=== PATIENT | female | born 1945 | race Caucasian/White ===

== ENCOUNTER 2016-08-17 00:11 | Inpatient (IN) ==
[2016-08-17] MEDS ORDERED: MOM Conc 10 ML UD.LIQ PO PRN (08:30)
[2016-08-17] MEDS ORDERED: Naloxone 0.4 MG/ML INJ IVP PRN (08:30)
[2016-08-17] MEDS ORDERED: Ibuprofen 600 MG TABLET PO PRN (08:30)
--- NOTE | 2016-08-17 08:41 | Internal Med History&Physical ---
<Mariah Palmer - Last Filed: 08/17/16 15:40> Date of Encounter: 08/17/16 Assessment and Plan (1) Intertrochanteric fracture of left hip Current visit: No Status: Acute Pt with L intertrochanteric fx, femeral head is not displaced, SI joints intact. Pt will have surgery tomorrow. Goal is to control pain until surgery. Pt has no obvious bruising or abrasions, but LLE is in position of comfort with obvious shortening and external rotation. LLE with +1 pedal pulse, foot pink and warm, adequate movement of toes and ankle. Morphine 1mg IV q4h prn severe pain Ibuprofen 400mg q6h po prn moderate pain DVT prophylaxis Pt will be NPO after midnight Qualifiers: Encounter type: initial encounter Fracture type: closed Qualified Code(s) : S72.142A - Displaced intertrochanteric fracture of left femur, initial encounter for closed fracture (2) Hypertension Current visit: Yes Status: Chronic Pt states that she has HTN but only takes her medication when she needs it. Will monitor throughout admission. Qualifiers: Hypertension type: essential hypertension Qualified Code(s): I10 - Essential (primary) hypertension (3) Vitamin D deficiency Current visit: Yes Status: Chronic Pt reports history of Vit D deficiency with OTC supplementation. Vit D 25mg/dL. Internal Medicine - H&P: HPI Chief complaint: L hip fracture Admitted From: Home Plans for Post Hospital Care: Transfer Inp Rehab Fac History of present illness: Ms. Ross is a 71 year old female with a history of previous fracture and ORIF to L tib fib 2 years ago, Osteoporosis, and osteopenia, who presents to [facility] for fall at 2100 last pm. Pt states that she got up and her knee twisted, causing her to fall to the floor. Pt with L intertrochanteric hip fracture and swelling to L knee, without fracture. VS stable. Temp 98.4, pulse 97, resps 18, 143/80, 92% on room air, sats increase to 97% with 2 liters 02/ nc. Past Med Surg Social Fam HX - Past Medical History Medical history: GERD, hypertension, osteoporosis (Rheumatic fever as a child), other (Heart murmur, vitamin D deficiency) Psychiatric history: no psych history - Past Surgical History Surgical History: , orthopedic, other (L tib fib ORIF) - Social History Smoking Status: Never smoker Smokeless Tobacco Status: No Alcohol use: none Drug use: none - Family History Father Living Status: Age at : 59 Cause of : [place] or blood clot Hx Family Cardiac Disorders: Yes Hx Family Respiratory Disorders: No Hx Family Cancer: Yes Hx Family GI Disorders: No Hx Family Genitourinary Disorders: No Hx Family Endocrine Disorder: No Hx Family Musculoskeletal Disorders: No Hx Family Neuromuscular Disorders: No Hx Family Neurologic Disorders: No Hx Family HEENT Disorders: No Hx Family Autoimmune Disorders: No Hx Family Reproductive Disorders: No Hx Family Psychosocial Disorders: No Hx Family Medical Disorders: No Internal Medicine - H&P: Meds Alendronate Sodium [Fosamax] 70 mg PO BRYSON 08/17/16 [History] Cholecalciferol (Vitamin D3) [Vitamin D] 50,000 unit PO BRYSON 08/17/16 [History] HYDROcodone/Acet 5/325 mg [[place] 5-325 mg] 1 tab PO Q8H PRN 08/17/16 [History] Ibuprofen [Ibuprofen] 800 mg PO TID PRN 08/17/16 [History] Lisinopril [Zestril] 10 mg PO DAILY 08/17/16 [History] Allergies codeine Adverse Reaction (Verified 08/17/16 11:28) Vomiting All Systems PM: A 10-system review of systems was performed and is negative for pertinent findings except as documented above in the HPI. - Constitutional Constitutional: falls, no chills, no fever(s), no weakness - Cardiovascular Cardiovascular ROS IM: no chest pain, no dyspnea, no lightheadedness - Respiratory Respiratory: no cough, no dyspnea - Gastrointestinal Gastrointestinal: no diarrhea, no nausea, no vomiting - Musculoskeletal Musculoskeletal ROS IM: deformity, joint swelling, limited range of motion, no numbness, no tingling Additional comments: Pt reports swelling to L knee and "I can't move my leg really well." - Neurological Neurological ROS: no confusion, no numbness, no paresthesias, no tingling - Constitutional Vitals: Temp Pulse Resp BP Pulse Ox 98.5 F 107 16 129/74 96 08/17/16 06:29 08/17/16 06:29 08/17/16 06:29 08/17/16 06:29 08/17/16 06:29 General appearance: Present: A&O X 3, pleasant, no acute distress, answers questions appropriately - Head Head exam: Present: atraumatic, normal inspection - Eye Eye exam: Present: normal appearance, PERRL, conjuntiva pink - ENT ENT exam: Present: mucous membranes dry, normal oropharynx - Neck Neck exam general surgery: Absent: lymphadenopathy, tenderness - Respiratory Respiratory exam: Present: CTAB. Absent: chest wall tenderness, rhonchi, wheezes - Cardiovascular Cardiovascular exam: Present: RRR, +S1, +S2 - GI/Abdominal GI/Abdominal exam: Present: hyperactive bowel sounds, soft. Absent: distended, tenderness - Extremities Exam Extremities exam: Present: joint swelling, tenderness, warm, radial pulses palpable and symetrical. Absent: cyanotic, pedal edema Additional comments: Swelling to L knee, no bruising or abrasions. Palpable deformity to L hip. No abrasions or bruising noted. Pt can move toes. No palpable pedal or post tibial pulse to R foot,L foot +1 pedal. David feet pink and warm. - Expanded Upper Extremities Exam Vascular exam: Present: pedal pulse right, pedal pulse left - Neurological Exam Neurological exam: Present: alert, oriented X3. Absent: facial droop, speech deficit - Skin Skin exam: Present: dry, intact, normal color, warm. Absent: abrasion <Oswald Young - Last Filed: 08/17/16 18:36> Date of Encounter: 08/17/16 Time of Encounter: 15:00 Internal Medicine - H&P: HPI History of present illness: Ms. Ross is a 71 year old female All Systems PM: A 10-system review of systems was performed and is negative for pertinent findings except as documented above in the HPI. - Constitutional Vitals: Temp Pulse Resp BP Pulse Ox 99.1 F 91 16 114/68 95 08/17/16 14:54 08/17/16 17:55 08/17/16 14:54 08/17/16 14:54 08/17/16 17:55 Internal Med - H&P Results - Labs Labs: Cardiac Enzymes 08/17/16 08/17/16 Range/Units 09:04 14:59 Troponin I 0.05 H* 0.03 (0-0.03) ng/mL - Attending Attestation I examined this patient and my medical decision-making was reviewed with the Advanced Practice Provider. I agree with the documented findings, disposition and treatment plan as described except to the extent set forth below. patient has suffered a mechanical fall at home and started having severe sharp left sided hip pain and left-sided knee pain worsened by movement. She was unable to stand up. The pain is currently improved with IV pain medication. Plan: Low risk for surgery, she is medically optimized for operative repair of the left hip fracture. She is at high risk for morbidity and complications due to treatment with IV controlled substances.
[2016-08-17] MEDS: *HR* Morphine 2 MG/ML SYRINGE IVP PRN ×3 (09:13→22:11)
[2016-08-17 09:17] LABS: INR 1.2; Prothrombin Time 13.1 Seconds (9.4-12.1)
[2016-08-17] MEDS: Ondansetron 4 MG/2 ML VIAL IVP PRN ×2 (09:25→17:45)
[2016-08-17] MEDS: *HR* Heparin 5,000 UNIT/ML VIAL SQ SCH ×2 (11:02→18:44)
[2016-08-17] MEDS: Cholecalciferol (D-3) 1,000 UNIT TABLET PO SCH (11:03)
[2016-08-17 11:14] LABS: Hemoglobin A1C 5.4 %
--- NOTE | 2016-08-17 18:26 | Orthopedic Consult Note ---
Date of Encounter: 08/17/16 Time of Encounter: 06:00 History of Present Illness HPI: Ms. Ross is a 71 year old female Patient status post fall when her knee gave out. Complaints of pain in her left hip. Inability to actively. Denies any head trauma. Patient alert and oriented 3 Left lower extremity neurovascularly intact decreased range of motion secondary to pain X-ray left hip shows basicervical hip fracture x-rays of knee and wrist negative for fracture. Patient for left hip open reduction intramedullary nail fixation tomorrow. Risks benefits as well as recovery were discussed. Past Med Surg Social Fam HX - Past Medical History Medical history: GERD, hypertension, osteoporosis (Rheumatic fever as a child), other (Heart murmur, vitamin D deficiency) Psychiatric history: no psych history - Past Surgical History Surgical History: , orthopedic, other (L tib fib ORIF) - Social History Smoking Status: Never smoker Smokeless Tobacco Status: No Alcohol use: none Drug use: none - Family History Father Living Status: Age at : 59 Cause of : [place] or blood clot Hx Family Cardiac Disorders: Yes Hx Family Respiratory Disorders: No Hx Family Cancer: Yes Hx Family GI Disorders: No Hx Family Genitourinary Disorders: No Hx Family Endocrine Disorder: No Hx Family Musculoskeletal Disorders: No Hx Family Neuromuscular Disorders: No Hx Family Neurologic Disorders: No Hx Family HEENT Disorders: No Hx Family Autoimmune Disorders: No Hx Family Reproductive Disorders: No Hx Family Psychosocial Disorders: No Hx Family Medical Disorders: No Medications and Allergies Alendronate Sodium [Fosamax] 70 mg PO BRYSON 08/17/16 [History] Cholecalciferol (Vitamin D3) [Vitamin D] 50,000 unit PO BRYSON 08/17/16 [History] HYDROcodone/Acet 5/325 mg [[place] 5-325 mg] 1 tab PO Q8H PRN 08/17/16 [History] Ibuprofen [Ibuprofen] 800 mg PO TID PRN 08/17/16 [History] Lisinopril [Zestril] 10 mg PO DAILY 08/17/16 [History] Allergies codeine Adverse Reaction (Verified 08/17/16 11:28) Vomiting All Systems Reviewed: A 10-system review of systems was performed and is negative for pertinent findings except as documented above in the HPI. Physical Exam - Constitutional Vitals: Temp Pulse Resp BP Pulse Ox 99.1 F 91 16 114/68 95 08/17/16 14:54 08/17/16 17:55 08/17/16 14:54 08/17/16 14:54 08/17/16 17:55 Results - Labs Labs: Abnormal lab results PT 13.1 Seconds (9.4-12.1) H 08/17/16 09:04 All other labs normal. Consult Discharge Plan - Plan Referrals: Kecia Elkins, PUMP TESTER [Primary Care Provider] -
[2016-08-17] MEDS: Famotidine 20 MG TABLET PO SCH (19:33)
--- NOTE | 2016-08-17 20:51 | Anesthesia Evaluation PreOp ---
Date of Encounter: 08/17/16 Time of Encounter: 20:49 - Past History Planned Operation: IM nailing L hip Cardiac History: HTN, Other (Rheumatic fever; heart murmur since childhood) Pulmonary History: Other (cold with sore throat one week ago) SEARCH MARKETING SPECIALIST History: Denies Any Significant HX Other Medical History: Other (osteoporosis; previous fracture to L tib-fib 2 years ago; vit D deficiency) Anesthesia History: No Prior Anesthetic Complications (except spinal didn't work for her C-S, nausea just after her C-S) Alcohol Use: none Drug use: none Medications and Allergies Alendronate Sodium [Fosamax] 70 mg PO BRYSON 08/17/16 [History] Cholecalciferol (Vitamin D3) [Vitamin D] 50,000 unit PO BRYSON 08/17/16 [History] HYDROcodone/Acet 5/325 mg [[place] 5-325 mg] 1 tab PO Q8H PRN 08/17/16 [History] Ibuprofen [Ibuprofen] 800 mg PO TID PRN 08/17/16 [History] Lisinopril [Zestril] 10 mg PO DAILY 08/17/16 [History] Allergies codeine Adverse Reaction (Verified 08/17/16 11:28) Vomiting - Meds/Allergy Pre-op Review Medications Reviewed: Yes Allergies Reviewed: Yes Beta Blockers on Current Med List: No Anesthesia Results - Labs Laboratory Tests 08/16/16 08/16/16 08/17/16 22:05 22:05 09:04 WBC 7.6 Hgb 13.9 Hct 42.6 Plt Count 302 PT 13.1 H INR 1.2 Sodium 142 Potassium 3.9 Chloride 108 Carbon Dioxide 23 BUN 10 Creatinine 0.74 Est GFR ( Amer) > 60 Est GFR (Non-Af Amer) > 60 BUN/Creatinine Ratio 14 Glucose 135 H Est Mean Plasma Glucose Hemoglobin A1c Calculated Osmolality 295 Calcium 9.4 08/17/16 09:04 WBC Hgb Hct Plt Count PT INR Sodium Potassium Chloride Carbon Dioxide BUN Creatinine Est GFR ( Amer) Est GFR (Non-Af Amer) BUN/Creatinine Ratio Glucose Est Mean Plasma Glucose 108 Hemoglobin A1c 5.4 Calculated Osmolality Calcium Anesthesia Exam Last Vital Signs Temp 98.3 F 08/17/16 20:02 Pulse 89 08/17/16 20:02 Resp 16 08/17/16 20:02 BP 110/71 08/17/16 20:02 Pulse Ox 92 L 08/17/16 20:02 Weight: 57 kg - HEENT Pupil (Motor): Pupils equal, EOMI Mallampati: II Teeth: Missing, Poor dentition, Prosthesis Denture Type: Upper: Partial Oral Opening: Greater than 3 - SEARCH MARKETING SPECIALIST LOC: Oriented - Cardiac Rhythm: Regular Murmur: Systolic (low grade LILIAN) - Pulmonary Breath Sounds: bilateral Clear Respiratory Effort: Symmetrical Anesthesia Assess/Plan ASA Score: 3 Modified Sonya Scale for Level of Consciousness: Cooperative, oriented, and tranquil Anesthetic Plan: General Monitoring Plan: Standard Monitors Recovery Plan: PACU
[2016-08-18] MEDS: *HR* Morphine 2 MG/ML SYRINGE IVP PRN ×2 (03:21→09:10)
[2016-08-18] MEDS: Ondansetron 4 MG/2 ML VIAL IVP PRN ×2 (03:25→12:16)
[2016-08-18] MEDS: *HR* Heparin 5,000 UNIT/ML VIAL SQ SCH (04:00)
[2016-08-18 04:24] LABS: BUN/Creatinine Ratio 18 (6-26); Blood Urea Nitrogen 12 mg/dL (7-20); Calcium 8.7 mg/dL (8.6-10.8); Carbon Dioxide 22 mEq/L (19-29); Chloride 107 mEq/L (98-109); Glucose 111 mg/dL (70-99); Osmolality,Calculated 290 (280-300); Potassium 3.7 mEq/L (3.5-4.5); Sodium 140 mEq/L (136-145); eGFR For African Americans > 60 (> 60); eGFR For Non-African Americans > 60 (> 60)
[2016-08-18 04:25] LABS: Basophils % 0.3 %; Eosinophils % 0.3 %; Hematocrit 40.3 % (35.3-44.9); Hemoglobin 12.9 g/dL (11.5-15.4); Immature Granulocytes % 0.3 % (0-4); Lymphocytes # 1.8 K/mcL (0.6-4.6); Lymphocytes % 21.1 %; Mean Corpuscular Hemoglobin 26.2 pg (28.0-33.3); Mean Corpuscular Volume 81.9 fL (83.0-100.0); Mean Platelet Volume 9.6 fL (9.4-12.4); Monocytes # 0.6 K/mcL (0.0-1.3); Monocytes % 6.3 %; Neutrophils # 6.3 K/mcL (1.6-8.9); Platelet Count 248 K/mcL (140-400); Red Blood Count 4.92 M/mcL (3.82-4.97); Red Cell Distribution Width 14.2 % (11.5-14.5); Segmented Neutrophils % 71.7 %
--- NOTE | 2016-08-18 06:45 | Orthopedics Progress Note ---
Date of Encounter: 08/18/16 Time of Encounter: 06:45 Subjective Interval history: Patient seen this morning resting comfortably for surgery today questions answered Objective Vital signs: Vital Signs Temp Pulse Resp BP Pulse Ox 08/18/16 05:08 98.7 F 78 16 121/73 92 L 08/18/16 00:39 99.0 F 91 15 123/73 94 L 08/17/16 20:02 98.3 F 89 16 110/71 92 L 08/17/16 17:55 91 95 08/17/16 14:54 99.1 F 94 16 114/68 93 L 08/17/16 11:23 98.5 F 92 16 125/68 98 Intake and Output 08/17/16 08/17/16 08/18/16 15:59 23:59 07:59 Intake Total 360 / 360 0 / 0 Output Total 600 / 600 1125 / 1125 Balance -600 / -600 -765 / -765 0 / 0 Intake: Oral 360 / 360 0 / 0 Output: Urine 600 / 600 1125 / 1125 - Labs CBC & BMP: 08/18/16 03:58 08/18/16 03:58 Labs: Abnormal lab results MCV 81.9 fL (83.0-100.0) L 08/18/16 03:58 MCH 26.2 pg (28.0-33.3) L 08/18/16 03:58 PT 13.1 Seconds (9.4-12.1) H 08/17/16 09:04 Glucose 111 mg/dL (70-99) H 08/18/16 03:58 Troponin I 0.04 ng/mL (0-0.03) H* 08/17/16 20:48 - VTE Documentation of Mechanical Device: Intermittent pneumatic compression device Consult Discharge Plan - Plan Referrals: Kecia Elkins, IT SUPPORT SPECIALIST [Primary Care Provider] -
[2016-08-18] MEDS: Famotidine 20 MG TABLET PO SCH ×2 (09:09→21:35)
[2016-08-18] MEDS: Cholecalciferol (D-3) 1,000 UNIT TABLET PO SCH (09:09)
--- NOTE | 2016-08-18 10:01 | Cardiology Consult Note ---
Date of Encounter: 08/18/16 Time of Encounter: 09:54 Assessment and Plan (1) Pre-operative cardiovascular examination Current Visit: Yes Status: Acute EKG shows no acute ST changes. Pt denies cardiac symptoms. No previous cardiac history. Mild troponin elevation in the setting of fall with fracture. Demand ischemia. TTE ordered by primary group. We will follow with you. If no abnormalities on TTE she can proceed with surgery with acceptable risk. (2) Elevated troponin Current Visit: Yes Status: Acute Troponin 0.05, 0.03, 0.04. Demand ischemia in the setting of fall and hip fracture. Not diagnostic of ACS. Discussion w patient/family: The assessment and plan as outlined above was discussed with the patient and/or family members who expressed understanding and agreement. All questions were answered. Thank you for involving us in the care of your patient. Please call with any questions. History of Present Illness Consult date: 08/18/16 Requesting physician: Sid Palencia Consult reason: Pre-operative cardiovascular assessment Chief complaint: Mechanical fall History of present illness: Ms. Ross is a 71 year old female who presented after a mechanical fall at home. She was found to have a left intertrochanteric hip fracture. Cardiology consulted for mild troponin elevation and pre-operative risk assessment. Past medical history includes hypertension, rhuematic fever, and heart murmur. She denies chest pain or SOB at rest or with activity. She is able to do her own house cleaning and walk without cardiac symptoms. She is unable to climb a full flight of stairs d/t knee pain. Activity limited overall d/t chronic knee pain. Denies history of CAD. Past Med Surg Social Fam HX - Past Medical History Medical history: GERD, hypertension, osteoporosis (Rheumatic fever as a child), other (Heart murmur, vitamin D deficiency) Psychiatric history: no psych history - Past Surgical History Surgical History: , orthopedic, other (L tib fib ORIF) - Social History Smoking Status: Never smoker Smokeless Tobacco Status: No Alcohol use: none Drug use: none - Family History Father Living Status: Age at : 59 Cause of : [place] or blood clot Hx Family Cardiac Disorders: Yes Hx Family Respiratory Disorders: No Hx Family Cancer: Yes Hx Family GI Disorders: No Hx Family Genitourinary Disorders: No Hx Family Endocrine Disorder: No Hx Family Musculoskeletal Disorders: No Hx Family Neuromuscular Disorders: No Hx Family Neurologic Disorders: No Hx Family HEENT Disorders: No Hx Family Autoimmune Disorders: No Hx Family Reproductive Disorders: No Hx Family Psychosocial Disorders: No Hx Family Medical Disorders: No Medications and Allergies Alendronate Sodium [Fosamax] 70 mg PO BRYSON 08/17/16 [History] Cholecalciferol (Vitamin D3) [Vitamin D] 50,000 unit PO BRYSON 08/17/16 [History] HYDROcodone/Acet 5/325 mg [[place] 5-325 mg] 1 tab PO Q8H PRN 08/17/16 [History] Ibuprofen [Ibuprofen] 800 mg PO TID PRN 08/17/16 [History] Lisinopril [Zestril] 10 mg PO DAILY 08/17/16 [History] Allergies codeine Adverse Reaction (Verified 08/17/16 11:28) Vomiting All Systems Review: A 10-system review of systems was performed and is negative for pertinent findings except as documented above in the HPI. Physical Examination Vital Signs, Last 4 Hours Temp Pulse Resp BP Pulse Ox 08/18/16 07:27 99.0 F 91 18 123/69 92 L General: Conversant, No Apparent Distress HEENT: Atraumatic, Normocephaly, Mucus Membranes Moist Neck: No JVD, Normal carotid pulses Cardiac: Reg Rate and Rhythm, Normal S1 and S2, No Murmur Lungs: Normal Breath Sounds, No Wheeze, Rales, Rhonchi Neuro: Alert and responsive, No focal deficits noted Abdomen: Soft, Non-Tender Skin: No rashes noted on visualized skin Musculoskeletal: No Chest Wall Tenderness Extremities: No Clubbing, No Cyanosis, No Edema, Normal Pulses, Other (left leg externally rotated.) Results 08/18/16 03:58 08/18/16 03:58 Lab Results 08/17/16 08/17/16 08/17/16 09:04 14:59 20:48 WBC Hgb Hct Plt Count Sodium Potassium Chloride Carbon Dioxide BUN Creatinine Glucose Calcium Troponin I 0.05 H* 0.03 0.04 H* 08/18/16 08/18/16 03:58 03:58 WBC 8.7 Hgb 12.9 Hct 40.3 Plt Count 248 Sodium 140 Potassium 3.7 Chloride 107 Carbon Dioxide 22 BUN 12 Creatinine 0.65 Glucose 111 H Calcium 8.7 Troponin I - Imaging and Cardiology Echo: pending - EKG Interpretation EKG results cardiology: personally reviewed (SR with PAC. No ST changes. HR 96 bpm.) Consult Discharge Plan - Plan Referrals: Kecia Elkins, BONITA [Primary Care Provider] -
[2016-08-18] MEDS ORDERED: *HR* Heparin 5,000 UNIT/ML VIAL SQ SCH (10:45)
--- NOTE | 2016-08-18 13:46 | ECHO - Doppler Report ---
Echocardiogram Name: Maryam Ross Date of Study: 08/18/2016 Date: 1945 Ht: 64.0 in Medical Record#: [id number] Age: 71 Wt: 126.0 lb Gender: Female BSA: 1.61 Order #: [id number] Location: [facility] Room #: [facility] Reading Physician: Angel Mccoy DO, LORIN RUBIO FASNC Instrument Lens Generator: Mayi Amin RVT Ordering Physician: Mariah Palmer CNP Primary Physician: Kecia Elkins CNP Indications: Elevated troponin Impressions: Atrial fibrillation with RVR. LVEF >70%. LV appears small and underfilled. Consider IV fluids if clinically indicated. Normal LV chamber size, wall thickness and function. Indeterminate diastolic function. Grossly normal right ventricular structure and function. Mild pulmonary hypertension. No significant valvular dysfunction. Left Ventricular Wall Motion: Rest Echo Findings The apex, apical inferior, mid inferior, basal inferior, apical anterior, mid anterior, basal anterior, apical septal, mid inferior septal, basal inferior septal, apical lateral, mid anterior lateral, basal anterior lateral, mid anterior septal, mid inferior lateral, basal anterior septal and basal inferior lateral lane were hyperkinetic. Findings: Study Quality * Technically sub-optimal due to clinical status. ECG Findings * Atrial fibrillation with RVR. Left Ventricle * LVEF >70%. LV appears small and underfilled. * Normal LV chamber size, wall thickness and function. * Indeterminate diastolic function. Right Ventricle * Grossly normal right ventricular structure and function. Left Atrium * Normal left atrial size. Right Atrium * Normal right atrial size. Interatrial Septum * No evidence of PFO by color Doppler. Aortic Valve * Trileaflet aortic valve. * Sclerotic appearing aortiv valve leaflets. * No aortic regurgitation. * No aortic stenosis. Mitral Valve * Normal mitral valve structure and function. * No mitral regurgitation. * No mitral stenosis. Tricuspid Valve * Normal tricuspid valve structure and function. * Trace tricuspid regurgitation. * Mild pulmonary hypertension. Pulmonic Valve * Pulmonic valve not well visualized. Aorta * Normally sized aortic root. Pericardium * The pericardium appears normal. IVC * Normal IVC dimensions and inspiratory collapse. Pulmonary Artery * Normal visualized portions of the main pulmonary artery. History Hypertension Rheumatic Fever Family History of CAD Measurements: BP: 123/ 69 2D Normal Values RVIDd: 1.50 cm <2.7 cm IVSd: .60 cm 0.6 - 1.0 cm LVIDd: 4.20 cm 3.7 - 5.6 cm LVPWd: .60 cm 0.6 - 1.1 cm LVIDs: 3.50 cm 1.5 - 3.6 cm AO: 2.40 cm < 4.0 cm LA: 2.80 cm 2.0 - 4.0cm %FS: 16.70 cm >25 % LA volume: 32 Mitral Valve Peak E:.93 m/sec Peak A:.60 m/sec E/A Ratio:1.5 Peak E' Lat Domenico:14.5 cm/s Peak E' Med Domenico:13.6 cm/s E/E' Lat Ratio:6.4 E/E' Med Ratio:6.9 Tricuspid Valve TV Regurg Peak Grad: 38.00mmHg TV Regurg Peak Domenico: 3.08m/sec Updated by Angel Mccoy DO, JOANNE, MICHAEL PADGETT on 08/18/2016 1:40:49 PM electronically signed on 08/18/2016 1:41:36 PM with status of Final Wall Motion Asencio: 1=Normal, 2=Hypokinesis, 3=Akinesis, 4=Dyskinesis, 5=Aneurysmal, 6=Hyperkinetic, X=Not Visualized (Blank)=Missing
[2016-08-18] MEDS ORDERED: 0.9 % Sodium Chloride 500 ML IVC ONE (14:10)
--- NOTE | 2016-08-18 15:03 | Internal Med Progress Note ---
Date of Encounter: 08/18/16 Time of Encounter: 15:00 - Assessment and plan (1) Fall Current Visit: Yes Status: Acute Assessment and plan: mechanical fall Qualifiers: Encounter type: initial encounter Qualified Code(s): W19.XXXA - Unspecified fall, initial encounter (2) Intertrochanteric fracture of left hip Current Visit: No Status: Acute Assessment and plan: change morphine to dilaudid due to nausea and pain not controlled. zofran as needed. orthopedic service has been consulted: plan for surgery this afternoon. Qualifiers: Encounter type: initial encounter Fracture type: closed Qualified Code(s) : S72.142A - Displaced intertrochanteric fracture of left femur, initial encounter for closed fracture (3) Atrial fibrillation with RVR Current Visit: Yes Status: Acute Assessment and plan: patient developed afib with rvr, HR 142. Echocardiogram: LVEF 70%. Cardiology is following: Cardizem drip started with improvement of her hr to 90- 100s. Patient denies any shortness of breath or chest pain. (4) Elevated troponin Current Visit: Yes Status: Acute Assessment and plan: secondary to supply-demand mismatch. (5) Hypertension Current Visit: Yes Status: Chronic Assessment and plan: patient takes lisinopril. holding lisinopril. patient on IV dilaudid and cardizem drip. Qualifiers: Hypertension type: essential hypertension Qualified Code(s): I10 - Essential (primary) hypertension (6) Vitamin D deficiency Current Visit: Yes Status: Chronic Assessment and plan: continue oral vitamin D. - Subjective Interval history: patient developed atrial fibrillation with RVR and was started on IV cardizem drip. patient reports her left hip pain is not well controlled with morphine 1mg q4hr and it is causing her nausea. - Constitutional Vitals: Temp Pulse Resp BP Pulse Ox 99.3 F 91 12 110/67 95 08/18/16 13:59 08/18/16 14:17 08/18/16 14:17 08/18/16 14:17 08/18/16 14:17 General appearance: Present: cooperative, A&O X 3, pleasant, no acute distress, answers questions appropriately - Eye Eye exam: Present: PERRL, sclera anicteric - Neck Neck exam general surgery: Present: supple, trachea midline. Absent: lymphadenopathy - Respiratory Respiratory exam: Present: CTAB - Cardiovascular Cardiovascular exam: Present: irregular rhythm, tachycardia - GI/Abdominal GI/Abdominal exam: Present: normal bowel sounds - Extremities Exam Extremities exam: Absent: pedal edema - Back Exam Back exam: Absent: CVA tenderness (L), CVA tenderness (R) - Neurological Exam Neurological exam: Present: alert, oriented X3. Absent: facial droop, speech deficit Internal Medicine: Result - Labs CBC & Chem 7: 08/18/16 03:58 08/18/16 03:58 Labs: Short CBC 08/18/16 Range/Units 03:58 WBC 8.7 (4.3-11.1) K/mcL Hgb 12.9 (11.5-15.4) g/dL Hct 40.3 (35.3-44.9) % Plt Count 248 (140-400) K/mcL Neutrophils # 6.3 (1.6-8.9) K/mcL BMP 08/18/16 03:58 Sodium 140 Potassium 3.7 Chloride 107 Carbon Dioxide 22 BUN 12 Creatinine 0.65 Glucose 111 H Calcium 8.7 Cardiac Enzymes 08/17/16 08/17/16 Range/Units 14:59 20:48 Troponin I 0.03 0.04 H* (0-0.03) ng/mL - ABG Interpretation ABG results: PT/INR, D-dimer PT 13.1 Seconds (9.4-12.1) H 08/17/16 09:04 - VTE Documentation of Mechanical Device: Intermittent pneumatic compression device Consult Discharge Plan - Plan Referrals: Kecia Elkins, VISITOR SERVICES ASSOCIATE [Primary Care Provider] -
[2016-08-18] MEDS ORDERED: 0.9 % Sodium Chloride 1,000 ML IVC ONE (15:04)
[2016-08-18] MEDS ORDERED: *HR* HYDROmorphone 2 MG/ML SYRINGE IVP PRN ×2 (15:17→19:48)
[2016-08-18] MEDS ORDERED: Ondansetron 4 MG/2 ML VIAL IVP PRN ×2 (15:21→18:34)
--- NOTE | 2016-08-18 16:12 | Electrocardiograph Report ---
[facility] Test Date: 2016-08-17 Pat Name: Maryam Ross Department: 114 Room: [facility] Gender: F Shoer: : 1945 Requested By: Mariah Palmer Order Number: [id number] Reading MD: Angel Mccoy DO Measurements Intervals [place] Rate: 93 P: 35 VA: 136 QRS: 25 QRSD: 79 T: 43 QT: 348 QTc: 399 Interpretive Statements SINUS RHYTHM Electronically Signed On 08-18-16 16:11:39 EST by Angel Mccoy DO
--- NOTE | 2016-08-18 16:17 | Electrocardiograph Report ---
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
[2016-08-18] MEDS ORDERED: Acetaminophen IV 1,000 MG/100 ML INFUS..BTL ONE (17:48)
[2016-08-18] MEDS ORDERED: *HR* HYDROmorphone (PF) 1 MG/ML SYRINGE IVP PRN (18:34)
[2016-08-18] MEDS ORDERED: *HR* Propofol 200 MG/20 ML VIAL IVP ONE (18:39)
[2016-08-18] MEDS ORDERED: *HR* FentaNYL (PF) 100 MCG/2 ML VIAL ONE (18:39)
[2016-08-18] MEDS ORDERED: *HR* HYDROmorphone 2 MG/ML SYRINGE ONE (18:43)
--- NOTE | 2016-08-18 19:23 | Anesthesia Evaluation Post Op ---
Date of Encounter: 08/18/16 Time of Encounter: 19:25 - Vital Signs Vital Signs: Vital Signs/O2 Sat/Glucose, Most Current Temp Pulse Resp BP Pulse Ox 08/18/16 19:08 90 16 120/60 99 08/18/16 18:58 90 16 120/60 96 08/18/16 18:48 97.7 F 94 16 116/56 96 08/18/16 15:33 98.1 F 91 14 113/54 95 - Lungs Lungs: Clear Ascult./Percussion - Airway Airway: Non-obstructed - Cardiovascular Regular Rate - Mental Status Mental Status: Alert & Oriented, Answers Appropriately - Pain Pain Scale: 0 - Nausea Vomiting Nausea Vomiting: Not Present - Hydration Hydration: NPO - Discharge PostOp Status: Transfer Patient to floor
[2016-08-18] MEDS ORDERED: MOM Conc 10 ML UD.LIQ PO PRN (19:48)
[2016-08-18] MEDS ORDERED: Albuterol Neb 1.25 MG/3 ML VIAL IH ONE (19:48)
[2016-08-18] MEDS ORDERED: Naloxone 0.4 MG/ML INJ IVP PRN (19:48)
[2016-08-18 22:08] LABS: Hematocrit 36.3 % (35.3-44.9); Hemoglobin 11.6 g/dL (11.5-15.4)
[2016-08-19] MEDS: ceFAZolin 2,000 MG in D5% in Water 100 ML IVPB SCH ×2 (00:33→07:40)
[2016-08-19] MEDS: Ondansetron 4 MG/2 ML VIAL IVP PRN ×2 (04:43→22:34)
[2016-08-19] MEDS: *HR* Heparin 5,000 UNIT/ML VIAL SQ SCH ×2 (06:15→20:13)
[2016-08-19] MEDS: Famotidine 20 MG TABLET PO SCH ×2 (07:41→20:14)
[2016-08-19] MEDS: Cholecalciferol (D-3) 1,000 UNIT TABLET PO SCH (07:41)
[2016-08-19 08:04] LABS: Hematocrit 36.2 % (35.3-44.9); Hemoglobin 11.4 g/dL (11.5-15.4)
[2016-08-19 08:15] LABS: BUN/Creatinine Ratio 22 (6-26); Blood Urea Nitrogen 14 mg/dL (7-20); Calcium 8.3 mg/dL (8.6-10.8); Carbon Dioxide 25 mEq/L (19-29); Chloride 104 mEq/L (98-109); Glucose 115 mg/dL (70-99); Magnesium 1.9 mg/dL (1.6-2.6); Osmolality,Calculated 285 (280-300); Sodium 137 mEq/L (136-145); eGFR For African Americans > 60 (> 60); eGFR For Non-African Americans > 60 (> 60)
[2016-08-19 08:16] LABS: Potassium 4.3 mEq/L (3.5-4.5)
--- NOTE | 2016-08-19 13:37 | Internal Med Progress Note ---
Date of Encounter: 08/19/16 Time of Encounter: 13:35 - Assessment and plan (1) Fall Current Visit: Yes Status: Acute Assessment and plan: mechanical fall Qualifiers: Encounter type: initial encounter Qualified Code(s): W19.XXXA - Unspecified fall, initial encounter (2) Intertrochanteric fracture of left hip Current Visit: No Status: Acute Assessment and plan: Patient underwent Left IM nailing on 08/18. orthopedic service is following. continue pain control, PT/OT, DVT prophylaxis. psychologist social is following, planning discharge to rehab. Qualifiers: Encounter type: initial encounter Fracture type: closed Qualified Code(s) : S72.142A - Displaced intertrochanteric fracture of left femur, initial encounter for closed fracture (3) Atrial fibrillation with RVR Current Visit: Yes Status: Acute Assessment and plan: resolved. patient developed afib with rvr, HR 142 on 08/18 pre-op. Echocardiogram: LVEF 70%. Cardiology is following: stop Cardizem drip. start oral cardizem. aspirin only. (4) Elevated troponin Current Visit: Yes Status: Acute Assessment and plan: secondary to supply-demand mismatch. (5) Hypertension Current Visit: Yes Status: Chronic Assessment and plan: controlled. holding home dose of lisinopril. Qualifiers: Hypertension type: essential hypertension Qualified Code(s): I10 - Essential (primary) hypertension (6) Vitamin D deficiency Current Visit: Yes Status: Chronic Assessment and plan: continue oral vitamin D. - Subjective Interval history: patient had surgical repair of left hip fracture. she reports hip pain, mildly controlled with pain meds. - Constitutional Vitals: Temp Pulse Resp BP Pulse Ox 98.5 F 89 16 124/67 95 08/19/16 10:14 08/19/16 10:14 08/19/16 10:14 08/19/16 10:14 08/19/16 10:14 General appearance: Present: cooperative, A&O X 3, pleasant, no acute distress, answers questions appropriately - Eye Eye exam: Present: PERRL, sclera anicteric - Neck Neck exam general surgery: Present: supple, trachea midline. Absent: lymphadenopathy - Respiratory Respiratory exam: Present: CTAB - GI/Abdominal GI/Abdominal exam: Present: normal bowel sounds, soft. Absent: distended, tenderness - Extremities Exam Extremities exam: Absent: pedal edema - Back Exam Back exam: Absent: CVA tenderness (L), CVA tenderness (R) - Neurological Exam Neurological exam: Present: alert, oriented X3. Absent: facial droop, speech deficit Internal Medicine: Result - Labs CBC & Chem 7: 08/19/16 07:44 08/19/16 07:44 Labs: Short CBC 08/18/16 08/19/16 Range/Units 21:59 07:44 Hgb 11.6 11.4 L (11.5-15.4) g/dL Hct 36.3 36.2 (35.3-44.9) % BMP 08/19/16 07:44 Sodium 137 Potassium 4.3 Chloride 104 Carbon Dioxide 25 BUN 14 Creatinine 0.64 Glucose 115 H Calcium 8.3 L - ABG Interpretation ABG results: PT/INR, D-dimer PT 13.1 Seconds (9.4-12.1) H 08/17/16 09:04 - Impressions Impressions Fluoroscopy 08/18/16 00:00 IMPRESSION: Intraprocedural fluoroscopic spot images as above. See separate procedure report for more information. D/ / 08/18/2016 19:07:07 Isadora Jennings MD / earnold Interpreting Provider: Isadora Jennings MD Hip X-Ray 08/18/16 18:42 IMPRESSION: Left intertrochanteric fracture, in anatomic alignment following internal fixation. D/ / 08/18/2016 19:24:33 Vinod Christy MD / debby Interpreting Provider: Vinod Christy MD - VTE Documentation of Mechanical Device: Intermittent pneumatic compression device Consult Discharge Plan - Plan Referrals: Kecia Elkins, DENTURE MODEL MAKER [Primary Care Provider] -
--- NOTE | 2016-08-19 14:38 | Orthopedics Progress Note ---
Date of Encounter: 08/19/16 Time of Encounter: 14:36 - Assessment and Plan (1) Intertrochanteric fracture of left hip Current Visit: No Status: Acute Postoperative day #1 Continue medical management Continue OT/PT Continue DVT prophylaxis Qualifiers: Encounter type: initial encounter Fracture type: closed Qualified Code(s) : S72.142A - Displaced intertrochanteric fracture of left femur, initial encounter for closed fracture Subjective Principal diagnosis: Left hip fracture Interval history: Patient's feeling comfortable Still on Cardizem drip, heart rate down to 107 Left hip: Wound is clean dry intact Bilateral calves soft and nontender Neurovascularly intact distally Objective Vital signs: Vital Signs Temp Pulse Resp BP Pulse Ox 08/19/16 10:14 98.5 F 89 16 124/67 95 08/19/16 06:34 98.4 F 86 16 127/68 97 08/19/16 04:26 98.6 F 91 16 120/67 100 08/18/16 23:03 97.3 F L 79 14 105/62 08/18/16 22:08 97.6 F 80 14 109/62 97 08/18/16 21:40 112/63 08/18/16 21:00 98.0 F 85 14 104/56 96 08/18/16 20:40 10 95 08/18/16 20:33 98.0 F 76 10 96/53 95 08/18/16 20:01 97.9 F 76 12 105/64 96 08/18/16 20:00 95 08/18/16 19:38 97.3 F L 81 16 110/60 97 08/18/16 19:28 78 16 108/58 96 08/18/16 19:18 97.6 F 81 16 112/60 97 08/18/16 19:08 90 16 120/60 99 08/18/16 18:58 90 16 120/60 96 08/18/16 18:48 97.7 F 94 16 116/56 96 08/18/16 15:33 98.1 F 91 14 113/54 95 Intake and Output 08/18/16 08/19/16 08/19/16 23:59 07:59 15:59 Intake Total 100 / 100 100 / 100 Output Total 50 / 50 375 / 375 Balance -50 / -50 -275 / -275 100 / 100 Intake: IV Fluids 100 / 100 100 / 100 Ancef 2,000 MG In 100 / 100 100 / 100 Dextrose 5% 100 ML @ 200 mls/hr IVPB Q8HR LAURIE Rx#: [id number] Output: Urine 375 / 375 Estimated Blood Loss 50 / 50 Other: # Voids 1 Incision: clean and dry - Labs CBC & BMP: 08/19/16 07:44 08/19/16 07:44 Labs: Abnormal lab results Hgb 11.4 g/dL (11.5-15.4) L 08/19/16 07:44 MCV 81.9 fL (83.0-100.0) L 08/18/16 03:58 MCH 26.2 pg (28.0-33.3) L 08/18/16 03:58 PT 13.1 Seconds (9.4-12.1) H 08/17/16 09:04 Glucose 115 mg/dL (70-99) H 08/19/16 07:44 Calcium 8.3 mg/dL (8.6-10.8) L 08/19/16 07:44 Troponin I 0.04 ng/mL (0-0.03) H* 08/17/16 20:48 - VTE Documentation of Mechanical Device: Intermittent pneumatic compression device Consult Discharge Plan - Plan Referrals: Kecia Elkins, PROCESS AREA SUPERVISOR [Primary Care Provider] -
--- NOTE | 2016-08-19 15:10 | Cardiology Progress Note ---
Date of Encounter: 08/19/16 Time of Encounter: 15:08 Assessment and Plan (1) Elevated troponin Current Visit: Yes Status: Acute Troponin 0.05, 0.03, 0.04. Demand ischemia in the setting of fall and hip fracture. Not diagnostic of ACS. TTE shows normal EF. No WMA. No further testing. Cardiology will sign off. Call with questions. F/u will be made in 1-2 weeks. (2) Atrial fibrillation with RVR Current Visit: Yes Status: Acute Atrial fibrillation with RVR developed while in hospital yesterday, Converted back to NSR shortly after on cardizem gtt. Afib in the setting of acute fracture, pain, and dehydration. No recurrent afib. I will convert IV cardizem to cardizem CD 120 mg daily to prevent re- occurrence. D/t transient afib and no reoccurrence, asa 81 mg daily recommended. Recommend out-pt f/u. Consider holter in the out-pt setting to r/o recurrent afib. Discussion w patient/family: The assessment and plan as outlined above was discussed with the patient and/or family members who expressed understanding and agreement. All questions were answered. Thank you for involving us in the care of your patient. Please call with any questions. Subjective Principal diagnosis: Left hip fracture Interval history: Pt is POD #1. No recurrent afib seen. She denies palpitations. Objective Vital Signs Temp Pulse Resp BP Pulse Ox 08/19/16 10:14 98.5 F 89 16 124/67 95 08/19/16 06:34 98.4 F 86 16 127/68 97 08/19/16 04:26 98.6 F 91 16 120/67 100 08/18/16 23:03 97.3 F L 79 14 105/62 08/18/16 22:08 97.6 F 80 14 109/62 97 08/18/16 21:40 112/63 08/18/16 21:00 98.0 F 85 14 104/56 96 08/18/16 20:40 10 95 08/18/16 20:33 98.0 F 76 10 96/53 95 08/18/16 20:01 97.9 F 76 12 105/64 96 08/18/16 20:00 95 08/18/16 19:38 97.3 F L 81 16 110/60 97 08/18/16 19:28 78 16 108/58 96 08/18/16 19:18 97.6 F 81 16 112/60 97 08/18/16 19:08 90 16 120/60 99 08/18/16 18:58 90 16 120/60 96 08/18/16 18:48 97.7 F 94 16 116/56 96 08/18/16 15:33 98.1 F 91 14 113/54 95 Intake and Output 08/18/16 08/19/16 08/19/16 23:59 07:59 15:59 Intake Total 100 / 100 100 / 100 Output Total 50 / 50 375 / 375 Balance -50 / -50 -275 / -275 100 / 100 Intake: IV Fluids 100 / 100 100 / 100 Ancef 2,000 MG In 100 / 100 100 / 100 Dextrose 5% 100 ML @ 200 mls/hr IVPB Q8HR LAURIE Rx#: [id number] Output: Urine 375 / 375 Estimated Blood Loss 50 / 50 Other: # Voids 1 General: Conversant, No Apparent Distress HEENT: Atraumatic, Normocephaly, Mucus Membranes Moist Neck: No JVD, Normal carotid pulses Cardiac: Reg Rate and Rhythm, Normal S1 and S2, No Murmur Lungs: Normal Breath Sounds, No Wheeze, Rales, Rhonchi Neuro: Alert and responsive, No focal deficits noted Abdomen: Soft, Non-Tender Skin: No rashes noted on visualized skin Musculoskeletal: No Chest Wall Tenderness Extremities: No Clubbing, No Cyanosis, No Edema, Normal Pulses, Other (Dressing LLE.) Results 08/19/16 07:44 08/19/16 07:44 Lab Results 08/18/16 08/19/16 08/19/16 21:59 07:44 07:44 Hgb 11.6 11.4 L Hct 36.3 36.2 Sodium 137 Potassium 4.3 Chloride 104 Carbon Dioxide 25 BUN 14 Creatinine 0.64 Glucose 115 H Calcium 8.3 L Magnesium 1.9 - Imaging and Cardiology Echo: report reviewed - EKG Interpretation EKG results cardiology: other (12 hour telemetry review shows NSR to ST. No recurrent afib. Avg HR 88 bpm.) - VTE Documentation of Mechanical Device: Intermittent pneumatic compression device Consult Discharge Plan - Plan Referrals: Kecia Elkins, ATTENDING PATHOLOGIST [Primary Care Provider] -
[2016-08-19] MEDS: Diltiazem CD (24hr) 120 MG CAPSULE PO SCH (15:37)
[2016-08-19] MEDS: *HR* HYDROcodone/Acet 5/325 mg TABLET PO PRN ×2 (15:37→22:35)
[2016-08-20 08:09] LABS: Hemoglobin 11.2 g/dL (11.5-15.4)
[2016-08-20] MEDS: Cholecalciferol (D-3) 1,000 UNIT TABLET PO SCH (09:01)
[2016-08-20] MEDS: *HR* HYDROcodone/Acet 5/325 mg TABLET PO PRN ×2 (09:01→20:40)
[2016-08-20] MEDS: Diltiazem CD (24hr) 120 MG CAPSULE PO SCH (09:01)
[2016-08-20] MEDS: Aspirin 81 MG TAB.CHEW PO SCH (09:02)
[2016-08-20] MEDS: *HR* Heparin 5,000 UNIT/ML VIAL SQ SCH ×2 (09:02→19:04)
[2016-08-20] MEDS: Famotidine 20 MG TABLET PO SCH ×2 (09:02→20:36)
--- NOTE | 2016-08-20 13:06 | Orthopedics Progress Note ---
Date of Encounter: 08/20/16 Time of Encounter: 13:05 - Assessment and Plan (1) Intertrochanteric fracture of left hip Current Visit: No Status: Acute Postoperative day #2 Continue medical management Continue OT/PT Continue DVT prophylaxis Discharge to rehabilitation tomorrow if medically stable Qualifiers: Encounter type: initial encounter Fracture type: closed Qualified Code(s) : S72.142A - Displaced intertrochanteric fracture of left femur, initial encounter for closed fracture Subjective Principal diagnosis: Left hip fracture Interval history: Patient's feeling comfortable Left hip: Dressings are clean dry intact Bilateral calves soft and nontender Neurovascularly intact distally Objective Vital signs: Vital Signs Temp Pulse Resp BP Pulse Ox 08/20/16 10:58 98.0 F 93 16 105/58 96 08/20/16 06:45 97.8 F 97 16 114/67 95 08/20/16 03:51 98.0 F 95 17 110/73 96 08/20/16 00:00 98.5 F 107 16 108/77 95 08/19/16 20:00 98.7 F 106 16 106/75 93 L 08/19/16 19:00 95 08/19/16 16:34 99.1 F 93 16 104/60 99 Intake and Output 08/19/16 08/20/16 08/20/16 23:59 07:59 15:59 Intake Total 240 / 240 Output Total 700 / 700 500 / 500 Balance -700 / -700 -260 / -260 Intake: Oral 240 / 240 Output: Urine 700 / 700 500 / 500 Incision: clean and dry - Labs CBC & BMP: 08/20/16 08:02 08/19/16 07:44 Labs: Abnormal lab results Hgb 11.2 g/dL (11.5-15.4) L 08/20/16 08:02 Hct 35.0 % (35.3-44.9) L 08/20/16 08:02 MCV 81.9 fL (83.0-100.0) L 08/18/16 03:58 MCH 26.2 pg (28.0-33.3) L 08/18/16 03:58 PT 13.1 Seconds (9.4-12.1) H 08/17/16 09:04 Glucose 115 mg/dL (70-99) H 08/19/16 07:44 Calcium 8.3 mg/dL (8.6-10.8) L 08/19/16 07:44 Troponin I 0.04 ng/mL (0-0.03) H* 08/17/16 20:48 - VTE Documentation of Mechanical Device: Intermittent pneumatic compression device Consult Discharge Plan - Plan Referrals: Kecia Elkins, BONITA [Primary Care Provider] -
--- NOTE | 2016-08-20 13:13 | Internal Med Progress Note ---
Date of Encounter: 08/20/16 Time of Encounter: 13:00 - Assessment and plan (1) Fall Current Visit: Yes Status: Acute Assessment and plan: mechanical fall Qualifiers: Encounter type: initial encounter Qualified Code(s): W19.XXXA - Unspecified fall, initial encounter (2) Intertrochanteric fracture of left hip Current Visit: No Status: Acute Assessment and plan: Patient underwent Left IM nailing on 08/18. orthopedic service is following. clinically stable. continue pain control, PT/OT , DVT prophylaxis. social security benefits interviewer is following, planning discharge to rehab. Qualifiers: Encounter type: initial encounter Fracture type: closed Qualified Code(s) : S72.142A - Displaced intertrochanteric fracture of left femur, initial encounter for closed fracture (3) Atrial fibrillation with RVR Current Visit: Yes Status: Acute Assessment and plan: resolved. patient developed afib with rvr, HR 142 on 08/18 pre-op. She received IV cardizemm drip and then transition post-op to oral cardizem. aspirin only. Cardiology is following. Echocardiogram: LVEF 70%. (4) Hypertension Current Visit: Yes Status: Chronic Assessment and plan: controlled. holding home dose of lisinopril. Qualifiers: Hypertension type: essential hypertension Qualified Code(s): I10 - Essential (primary) hypertension (5) Elevated troponin Current Visit: Yes Status: Acute Assessment and plan: secondary to supply-demand mismatch. (6) Vitamin D deficiency Current Visit: Yes Status: Chronic Assessment and plan: continue oral vitamin D. - Subjective Interval history: Patient has no complaints. Her pain is okay. - Constitutional Vitals: Temp Pulse Resp BP Pulse Ox 98.0 F 93 16 105/58 96 08/20/16 10:58 08/20/16 10:58 08/20/16 10:58 08/20/16 10:58 08/20/16 10:58 General appearance: Present: cooperative, A&O X 3, pleasant, no acute distress, answers questions appropriately - Eye Eye exam: Present: PERRL, sclera anicteric - Neck Neck exam general surgery: Present: supple, trachea midline. Absent: lymphadenopathy - Respiratory Respiratory exam: Present: CTAB - Cardiovascular Cardiovascular exam: Present: RRR - GI/Abdominal GI/Abdominal exam: Present: normal bowel sounds, soft. Absent: distended, tenderness - Extremities Exam Extremities exam: Absent: pedal edema - Back Exam Back exam: Absent: CVA tenderness (L), CVA tenderness (R) - Neurological Exam Neurological exam: Present: alert, oriented X3. Absent: facial droop, speech deficit - Skin Skin exam: Absent: rash Internal Medicine: Result - Labs CBC & Chem 7: 08/20/16 08:02 08/19/16 07:44 Labs: Short CBC 08/20/16 Range/Units 08:02 Hgb 11.2 L (11.5-15.4) g/dL Hct 35.0 L (35.3-44.9) % - ABG Interpretation ABG results: PT/INR, D-dimer PT 13.1 Seconds (9.4-12.1) H 08/17/16 09:04 - VTE Documentation of Mechanical Device: Intermittent pneumatic compression device Consult Discharge Plan - Plan Referrals: Kecia Elkins, SAP BASIS ADMINISTRATOR [Primary Care Provider] -
[2016-08-21] MEDS: *HR* HYDROcodone/Acet 5/325 mg TABLET PO PRN ×3 (05:00→20:14)
[2016-08-21 05:04] LABS: Basophils % 0.7 %; Eosinophils # 0.4 K/mcL (0.0-0.6); Eosinophils % 6.5 %; Hematocrit 32.1 % (35.3-44.9); Hemoglobin 10.3 g/dL (11.5-15.4); Immature Granulocytes % 0.8 % (0-4); Lymphocytes # 1.8 K/mcL (0.6-4.6); Lymphocytes % 29.4 %; Mean Corpuscular HGB Conc 32.1 g/dL (31.6-35.5); Mean Corpuscular Hemoglobin 26.3 pg (28.0-33.3); Mean Corpuscular Volume 81.9 fL (83.0-100.0); Mean Platelet Volume 9.5 fL (9.4-12.4); Monocytes # 0.6 K/mcL (0.0-1.3); Monocytes % 9.5 %; Neutrophils # 3.3 K/mcL (1.6-8.9); Platelet Count 238 K/mcL (140-400); Red Blood Count 3.92 M/mcL (3.82-4.97); Red Cell Distribution Width 13.9 % (11.5-14.5); Segmented Neutrophils % 53.1 %
[2016-08-21 05:18] LABS: BUN/Creatinine Ratio 14 (6-26); Blood Urea Nitrogen 8 mg/dL (7-20); Calcium 8.4 mg/dL (8.6-10.8); Carbon Dioxide 29 mEq/L (19-29); Chloride 103 mEq/L (98-109); Glucose 105 mg/dL (70-99); Magnesium 1.9 mg/dL (1.6-2.6); Osmolality,Calculated 291 (280-300); Sodium 141 mEq/L (136-145); eGFR For African Americans > 60 (> 60); eGFR For Non-African Americans > 60 (> 60)
[2016-08-21 05:19] LABS: Potassium 3.1 mEq/L (3.5-4.5)
--- NOTE | 2016-08-21 06:40 | Orthopedics Progress Note ---
Date of Encounter: 08/21/16 Time of Encounter: 06:40 Subjective Principal diagnosis: Left hip fracture Interval history: Patient was seen this morning doing well without complaints. Afebrile vital signs stable. Operative extremity: Neurovascularly intact Dressing clean dry and intact Calves nontender Assessment and plan: Continue with postoperative care sTable for discharge Objective Vital signs: Vital Signs Temp Pulse Resp BP Pulse Ox 08/21/16 04:13 98.8 F 90 15 114/67 92 L 08/20/16 23:48 97.8 F 91 15 97/53 92 L 08/20/16 20:20 98.9 F 94 14 105/50 92 L 08/20/16 20:00 92 L 08/20/16 15:36 98.3 F 89 16 103/54 95 08/20/16 10:58 98.0 F 93 16 105/58 96 08/20/16 06:45 97.8 F 97 16 114/67 95 Intake and Output 08/20/16 08/20/16 08/21/16 15:59 23:59 07:59 Intake Total 200 / 200 275 / 275 Output Total 400 / 400 650 / 650 Balance -200 / -200 -375 / -375 Intake: Oral 200 / 200 275 / 275 Output: Urine 400 / 400 650 / 650 - Labs CBC & BMP: 08/21/16 04:35 08/21/16 04:35 Labs: Abnormal lab results Hgb 10.3 g/dL (11.5-15.4) L 08/21/16 04:35 Hct 32.1 % (35.3-44.9) L 08/21/16 04:35 MCV 81.9 fL (83.0-100.0) L 08/21/16 04:35 MCH 26.3 pg (28.0-33.3) L 08/21/16 04:35 PT 13.1 Seconds (9.4-12.1) H 08/17/16 09:04 Potassium 3.1 mEq/L (3.5-4.5) L D 08/21/16 04:35 Glucose 105 mg/dL (70-99) H 08/21/16 04:35 Calcium 8.4 mg/dL (8.6-10.8) L 08/21/16 04:35 Troponin I 0.04 ng/mL (0-0.03) H* 08/17/16 20:48 - VTE Documentation of Mechanical Device: Intermittent pneumatic compression device Consult Discharge Plan - Plan Referrals: Kecia Elkins, BONITA [Primary Care Provider] -
[2016-08-21] MEDS: *HR* Heparin 5,000 UNIT/ML VIAL SQ SCH ×2 (07:50→20:15)
[2016-08-21] MEDS: Cholecalciferol (D-3) 1,000 UNIT TABLET PO SCH (07:51)
[2016-08-21] MEDS: Diltiazem CD (24hr) 120 MG CAPSULE PO SCH (07:51)
[2016-08-21] MEDS: Aspirin 81 MG TAB.CHEW PO SCH (07:51)
[2016-08-21] MEDS: Famotidine 20 MG TABLET PO SCH ×2 (07:51→20:15)
--- NOTE | 2016-08-21 09:11 | Orthopedic Operative Note ---
Date of procedure: 08/18/16 Pre-op diagnosis: Left hip fracture Post-op diagnosis: same Procedure: Procedure: Left hip open reduction intramedullary nail fixation Estimated blood loss: 50 cc Hardware: 10 x 1 30 Synthes TFN, 100 helical blade, 36 distal locking bolt Operative procedure: The patient was brought to the operating room and placed on the operating room table. After general anesthesia was administered the well leg was place in the well leg sheppard and the operative leg was placed in the fracture leg sheppard. All pressure points were padded appropriately. The operative extremity was prepped and draped in the sterile surgical fashion patient received IV antibiotic prior to skin incision. A standard direct lateral approach was made over the entry point of the greater trochanter, the incision was made through the skin and subcutaneous tissue hemostasis was obtained with Bovie cautery. Using careful sharp dissection the fascia was identified and incised, flouroscopic assistance was used to identify the entry point. The guidepin was placed at the entry point using fluroscopic assistance, it was over reamed with the proximal reamer. The nail was placed through the entry hole, across the fracture site into the distal fragment. the position was confirmed with fluroscopy. A guide pin was placed through the proximal locking guide from the lateral femur through the nail across the fracture site into the femoral head, it was over reamed with the reamer. The helical blade was placed over the guide pin through the nail into the femoral head, locked in place with the proximal locking bolt. Distal locking bolt was placed through the distal locking guide. position of hardware and fracture reduction found to be acceptable with fluroscopic assistance. The wound was irrigated. Fascia was closed with a running #2 PDS suture. The deep tissue was irrigated and closed deep with #1 PDS suture superficially with 0 PDS suture and skin was closed with Dermabond. The patient was placed in a sterile dressing The patient was extubated and transferred to the recovery room in stable condition. Anesthesia: GETA Surgeon: Sid Palencia Condition: stable Disposition: PACU
--- NOTE | 2016-08-21 09:50 | Discharge Summary ---
Date of Encounter: 08/21/16 Time of Encounter: 09:45 - Discharge Diagnosis (1) Fall Priority: Primary Status: Acute Qualifiers: Encounter type: initial encounter Qualified Code(s): W19.XXXA - Unspecified fall, initial encounter (2) Intertrochanteric fracture of left hip Priority: Primary Status: Acute Qualifiers: Encounter type: initial encounter Fracture type: closed Qualified Code(s) : S72.142A - Displaced intertrochanteric fracture of left femur, initial encounter for closed fracture (3) Atrial fibrillation with RVR Priority: Primary Status: Acute (4) Hypertension Priority: Secondary Status: Chronic Qualifiers: Hypertension type: essential hypertension Qualified Code(s): I10 - Essential (primary) hypertension (5) Elevated troponin Priority: Primary Status: Acute (6) Vitamin D deficiency Priority: Secondary Status: Chronic - Discharge Medications Prescriptions: HYDROcodone/Acet 5/325 mg [[place] 5-325 mg] 1 tab PO Q4HR PRN #30 tablet PRN Reason: Moderate Pain Home Medications: Alendronate Sodium [Fosamax] 70 mg PO BRYSON 08/17/16 [History] HYDROcodone/Acet 5/325 mg [[place] 5-325 mg] 1 tab PO Q8H PRN 08/17/16 [History] Aspirin 81 mg PO DAILY tab.chew 08/21/16 [Rx] Cholecalciferol (D-3) [Vitamin D] 2,000 unit PO DAILY tablet 08/21/16 [Rx] Diltiazem CD (24hr) [Cardizem CD] 120 mg PO DAILY #0 cap.er.24h 08/21/16 [Rx] Docusate [Colace] 100 mg PO BID PRN #0 capsule 08/21/16 [Rx] Famotidine [Pepcid] 20 mg PO BID tablet 08/21/16 [Rx] HYDROcodone/Acet 5/325 mg [[place] 5-325 mg] 1 tab PO Q4HR PRN #30 tablet [Rx] Allergies/Adverse Reactions: Allergies codeine Adverse Reaction (Verified 08/17/16 11:28) Vomiting Procedures/tests Complete & Pending: Procedures Performed prior 72 hours Category Date Time Status ECG 12 lead ECG [ECG] Routine Y 08/18/16 12:08 Completed EKG [ECG 12 lead ECG] [ECG] AM 0600 Y 08/19/16 06:00 Stop Req Date of admission: 08/17/16 01:34 Primary care physician: Kecia Elkins CNP Consults: 08/18/16 19:48 Consult to Occupational Therapy [CONS] Routine Comment: Evaluate, develop and implement POC Consult to Orthopedic Navigator [CONS] [CONS] Routine Consult to Physical Therapy [CONS] Routine Comment: Evaluate, develop and implement POC RT Post Op Consult [CONS] Routine - Patient Status Disposition: Transfer Inpatient Rehab Fac Condition: Good Functional capacity at discharge: uses cane/walker Overall status at discharge: patient is progressing back to baseline - Discharge Instructions Follow Up With: Sid Palencia MD [Partnered Physician] - (f/u in 1-2 weeks) Marie Obregon PAC [Physician Rn School] - 09/01/16 8:45 am Kecia Elkins CNP [Primary Care Provider] - 09/07/16 5:40 pm - Diet and Activity Activity: as per physical therapy Diet: low fat, low cholesterol, low salt diet Interval History: patient has no complaints. her potassium was down to 3.1. I will replace it. Hospital course: Ms. Ross is a 71 year old female with past medical history of hypertension, and GERD presented after a fall at home. She was diagnosed with left hip fracture and underwent Left IM nailing on 08/18 without complications. Her preop course was complicated by transient atrial fibrillation with rapid ventricular response with heart rate 142. She received IV Cardizem push and she converted to normal sinus rhythm. She was maintained on IV Cardizem drip preop and then transitioned to oral Cardizem postop. Aspirin daily was recommended. Her home dose of lisinopril was stopped with adequate control of her BP. PLAN: Follow-up in the orthopedic clinic in one to 2 weeks. Follow-up in the cardiology clinic in 1-2 weeks - Time Spent with Patient Total time spent providing and/or coordinating discharge services: - Constitutional Vitals: Temp Pulse Resp BP Pulse Ox 98.2 F 86 18 100/63 93 L 08/21/16 06:49 08/21/16 06:49 08/21/16 06:49 08/21/16 06:49 08/21/16 06:49 General appearance: Present: cooperative, A&O X 3, pleasant, no acute distress, answers questions appropriately - Eye Eye exam: Present: PERRL, sclera anicteric - Neck Neck exam general surgery: Present: supple, trachea midline. Absent: lymphadenopathy - Respiratory Respiratory exam: Present: CTAB - Cardiovascular Cardiovascular exam: Present: RRR - GI/Abdominal GI/Abdominal exam: Present: normal bowel sounds, soft. Absent: distended, tenderness - Extremities Exam Extremities exam: Absent: pedal edema - Back Exam Back exam: Absent: CVA tenderness (L), CVA tenderness (R) - Neurological Exam Neurological exam: Present: alert, oriented X3, no focal deficits. Absent: facial droop, speech deficit - Skin Skin exam: Absent: rash - VTE Documentation of Mechanical Device: Venous foot pump, device
--- NOTE | 2016-08-21 09:55 | Physician Discharge Referral ---
ExtendedCare Referral Info Transfer To: [facility] Provider in Charge: anette Provider in Charge after Transfer: PCP Institutional Level of Care: Skilled - Diagnosis (1) Fall Status: Acute (2) Intertrochanteric fracture of left hip Status: Acute (3) Atrial fibrillation with RVR Status: Acute (4) Hypertension Status: Chronic (5) Elevated troponin Status: Acute (6) Vitamin D deficiency Status: Chronic - Transfer Medications Prescriptions: HYDROcodone/Acet 5/325 mg [[place] 5-325 mg] 1 tab PO Q4HR PRN #30 tablet PRN Reason: Moderate Pain Home Medications: Alendronate Sodium [Fosamax] 70 mg PO BRYSON 08/17/16 [History] HYDROcodone/Acet 5/325 mg [[place] 5-325 mg] 1 tab PO Q8H PRN 08/17/16 [History] Aspirin 81 mg PO DAILY tab.chew 08/21/16 [Rx] Cholecalciferol (D-3) [Vitamin D] 2,000 unit PO DAILY tablet 08/21/16 [Rx] Diltiazem CD (24hr) [Cardizem CD] 120 mg PO DAILY #0 cap.er.24h 08/21/16 [Rx] Docusate [Colace] 100 mg PO BID PRN #0 capsule 08/21/16 [Rx] Famotidine [Pepcid] 20 mg PO BID tablet 08/21/16 [Rx] HYDROcodone/Acet 5/325 mg [[place] 5-325 mg] 1 tab PO Q4HR PRN #30 tablet [Rx] Allergies/Adverse Reactions: Allergies codeine Adverse Reaction (Verified 08/17/16 11:28) Vomiting - Respiratory Orders Smoking Cessation: Smoking cessation has been advised. For more information, call the [place] Tobacco Quit Line at 2-046-JEXB-NOW. - Lab Orders Lab Orders: Other (include drug levels w/frequency) (potassium on 08/24/16.) - Advance Directives Code Status: Full Code - Mobility Orders Ambulate - Rehabiliation Orders Rehab Potential: Good Rehab Orders: Evaluation for Physical Therapy, Evaluation for Occupational Therapy - Diet Orders No Added Salt (ELSIE), Cardiac CERTIFICATION: I certify that the transfer of the above named patient to an Extended Care Facility is necessary for the continuing treatment of the diagnosis listed. The above information is true and accurate reflection of patient's current condition. Confidential - Redisclosure prohibited without a patient's written consent.
--- NOTE | 2016-08-21 11:30 | Electrocardiograph Report ---
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
[2016-08-22] MEDS: *HR* Heparin 5,000 UNIT/ML VIAL SQ SCH (06:31)
[2016-08-22] MEDS: *HR* HYDROcodone/Acet 5/325 mg TABLET PO PRN ×2 (06:31→14:10)
[2016-08-22 08:32] LABS: Basophils % 0.8 %; Eosinophils # 0.4 K/mcL (0.0-0.6); Eosinophils % 7.8 %; Hematocrit 35.4 % (35.3-44.9); Hemoglobin 11.3 g/dL (11.5-15.4); Immature Granulocytes % 0.2 % (0-4); Immature Platelets 2.3 % (1.1-6.1); Lymphocytes # 1.4 K/mcL (0.6-4.6); Lymphocytes % 26.9 %; Mean Corpuscular HGB Conc 31.9 g/dL (31.6-35.5); Mean Corpuscular Hemoglobin 26.5 pg (28.0-33.3); Mean Corpuscular Volume 82.9 fL (83.0-100.0); Mean Platelet Volume 9.3 fL (9.4-12.4); Monocytes # 0.4 K/mcL (0.0-1.3); Monocytes % 7.6 %; Neutrophils # 2.9 K/mcL (1.6-8.9); Platelet Count 336 K/mcL (140-400); Red Blood Count 4.27 M/mcL (3.82-4.97); Segmented Neutrophils % 56.7 %
[2016-08-22 08:48] LABS: BUN/Creatinine Ratio 14 (6-26); Blood Urea Nitrogen 8 mg/dL (7-20); Carbon Dioxide 25 mEq/L (19-29); Chloride 105 mEq/L (98-109); Glucose 107 mg/dL (70-99); Magnesium 1.8 mg/dL (1.6-2.6); Osmolality,Calculated 291 (280-300); Potassium 3.7 mEq/L (3.5-4.5); Sodium 141 mEq/L (136-145); eGFR For African Americans > 60 (> 60); eGFR For Non-African Americans > 60 (> 60)
[2016-08-22] MEDS: Diltiazem CD (24hr) 120 MG CAPSULE PO SCH (09:24)
[2016-08-22] MEDS: Cholecalciferol (D-3) 1,000 UNIT TABLET PO SCH (09:24)
[2016-08-22] MEDS: Famotidine 20 MG TABLET PO SCH (09:24)
[2016-08-22] MEDS: Aspirin 81 MG TAB.CHEW PO SCH (09:24)
--- NOTE | 2016-08-22 09:49 | Internal Med Progress Note ---
Date of Encounter: 08/22/16 Time of Encounter: 09:46 - Assessment and plan (1) Atrial fibrillation with RVR Current Visit: Yes Status: Acute Assessment and plan: Stable. Currently in NSR. Continued on Cardizem CD 120mg PO daily. Echocardiogram: LVEF 70%. (2) Hypertension Current Visit: Yes Status: Chronic Assessment and plan: BP is stable this am at 127/76. Lisinopril was held post left hip fracture and surgical repair. Renal function stable. Qualifiers: Hypertension type: essential hypertension Qualified Code(s): I10 - Essential (primary) hypertension (3) Vitamin D deficiency Current Visit: Yes Status: Chronic Assessment and plan: continue oral vitamin D. (4) Intertrochanteric fracture of left hip Current Visit: No Status: Acute Assessment and plan: Patient underwent Left Intramedullary nailing on 08/18. Patient is stable and awaiting placement today. Follow-up in the orthopedic clinic in one to 2 weeks. Follow-up in the cardiology clinic in 1-2 weeks Qualifiers: Encounter type: initial encounter Fracture type: closed Qualified Code(s) : S72.142A - Displaced intertrochanteric fracture of left femur, initial encounter for closed fracture - Subjective Interval history: Ms. Chery been seen and evaluated patient awake alert and laying in bed with She said that she had some nausea but no vomiting, diarrhea. She has not had a bowel movement but has had flatulents. She has a little bit of discomfort in her left hip and thigh described as ache. She denies any chest pain, Chest pressure, palpitations, abdominal pain. She is awaiting placement for rehabilitation this morning. She has no other questions or concerns. - Constitutional Vitals: Temp Pulse Resp BP Pulse Ox 98.3 F 87 18 127/76 94 L 08/22/16 06:20 08/22/16 06:20 08/22/16 06:20 08/22/16 06:20 08/22/16 06:20 General appearance: Present: cooperative, A&O X 3, pleasant, no acute distress, answers questions appropriately - Head Head exam: Present: atraumatic, normocephalic - Eye Eye exam: Present: PERRL, conjuntiva pink, sclera anicteric Pupils: Present: PERRL - Neck Neck exam general surgery: Present: supple, trachea midline. Absent: lymphadenopathy - Respiratory Respiratory exam: Present: CTAB. Absent: accessory muscle use, rales, rhonchi, wheezes - Cardiovascular Cardiovascular exam: Present: RRR, +S1, +S2. Absent: diastolic murmur, gallop, rubs, systolic murmur - GI/Abdominal GI/Abdominal exam: Present: normal bowel sounds, soft, no peritoneal signs. Absent: distended, tenderness - Extremities Exam Additional comments: left hip is swollen postsurgical procedure. Left lateral incision is healing appropriately without drainage or erythema. posterior tibial pulses are 2+ bilaterally. No pedel edema, patient is able to move both feet and retains sensation in both LE. She denies any numbness, paralysis or lack of sensation. - Neurological Exam Neurological exam: Present: alert, oriented X3, no focal deficits. Absent: pronater drift, facial droop, speech deficit - Psychiatric Psychiatric exam: Present: normal affect, normal mood Additional comments: Answers questions appropriately. Internal Medicine: Result - Labs CBC & Chem 7: 08/22/16 08:24 08/22/16 08:24 Labs: Short CBC 08/22/16 Range/Units 08:24 WBC 5.2 (4.3-11.1) K/mcL Hgb 11.3 L (11.5-15.4) g/dL Hct 35.4 (35.3-44.9) % Plt Count 336 (140-400) K/mcL Neutrophils # 2.9 (1.6-8.9) K/mcL BMP 08/22/16 08:24 Sodium 141 Potassium 3.7 Chloride 105 Carbon Dioxide 25 BUN 8 Creatinine 0.57 Glucose 107 H Calcium 9.0 - ABG Interpretation ABG results: PT/INR, D-dimer PT 13.1 Seconds (9.4-12.1) H 08/17/16 09:04 - VTE Documentation of Mechanical Device: Intermittent pneumatic compression device Consult Discharge Plan - Plan Referrals: Sid Palencia MD [Partnered Physician] - (f/u in 1-2 weeks) Marie Obregon, PAC [Physician Community Planner] - 09/01/16 8:45 am Kecia Elkins, PAINTER SHIPYARD [Primary Care Provider] - 09/07/16 5:40 pm Prescriptions: HYDROcodone/Acet 5/325 mg [[place] 5-325 mg] 1 tab PO Q4HR PRN #30 tablet PRN Reason: Moderate Pain
[2016-08-22 10:54] VITALS: BP 119/71
== END 2016-08-22 14:15 | disposition other institution (70) | DRG 481 ==
LOC: 3NENU 01:34 → SUATTDRO 01:34
PROVIDERS: ADMIT Family Medicine; ATTEND Internal Medicine

== ENCOUNTER 2016-10-30 12:56 | Inpatient (IN) ==
--- NOTE | 2016-10-29 20:58 | Discharge Summary ---
<Marie Obregon - Last Filed: 10/29/16 20:55> Date of Encounter: 10/29/16 - Discharge Diagnosis (1) Closed fracture of hip with malunion Priority: Primary Status: Acute Qualifiers: Laterality: left Qualified Code(s): S72.002P - Fracture of unspecified part of neck of left femur, subsequent encounter for closed fracture with malunion (2) Hypertension Priority: Secondary Status: Chronic Qualifiers: Hypertension type: essential hypertension (3) Vitamin D deficiency Priority: Secondary Status: Chronic (4) Atrial fibrillation with RVR Priority: Secondary Status: Chronic (5) Physical deconditioning Priority: Secondary Status: Chronic - Discharge Medications Home Medications: Alendronate Sodium [Fosamax] 70 mg PO BRYSON 08/17/16 [History] Diltiazem CD (24hr) [Cardizem CD] 120 mg PO DAILY #30 cap.er.24h 08/31/16 [Rx] Ergocalciferol (VITAMIN D2) [Drisdol (50,000 Unit)] 50,000 unit PO Bryson@0900 capsule 08/31/16 [Rx] Aspirin 325 mg PO DAILY #21 tablet 10/29/16 [Rx] OxyCODONE Immed Rel [Roxicodone 5 MG] 5 - 10 mg PO Q6HR PRN #40 tablet 10/29/16 [Rx] Aspirin [Lo-Dose Aspirin EC] 81 mg PO DAILY 10/30/16 [History] HYDROcodone/Acet 5/325 mg [[place] 5-325 mg] 1 tab PO Q6H PRN 10/30/16 [History] Ibuprofen [Motrin] 600 mg PO Q6HR PRN 10/30/16 [History] Ranitidine HCl [Zantac] 150 mg PO HS 10/30/16 [History] Allergies/Adverse Reactions: Allergies codeine Adverse Reaction (Verified 10/30/16 14:04) Vomiting Primary care physician: Kecia Elkins CNP - Patient Status Disposition: Transfer Inpatient Rehab Fac Condition: Fair - Discharge Instructions Follow Up With: Sid Palencia MD [Partnered Physician] - 11/29/16 4:45 pm Marie Obregon, MICHAEL [Physician Gang Vibrator Operator] - 11/09/16 11:30 am Kecia Elkins CNP [Primary Care Provider] - 12/07/16 6:40 pm - Hospital Course Hospital course: Ms. Ross is a 71 year old female - Time Spent with Patient Total time spent providing and/or coordinating discharge services: <Sid Palencia - Last Filed: 11/02/16 08:09> Date of Encounter: 11/02/16 Time of Encounter: 08:08 - Discharge Diagnosis (1) Hypertension Priority: Secondary Status: Chronic Qualifiers: Hypertension type: essential hypertension Qualified Code(s): I10 - Essential (primary) hypertension (2) Vitamin D deficiency Priority: Secondary Status: Chronic (3) Atrial fibrillation with RVR Priority: Secondary Status: Acute (4) Intertrochanteric fracture of left hip Priority: Primary Status: Acute Qualifiers: Encounter type: subsequent encounter Fracture type: closed Fracture healing: with routine healing Qualified Code(s): S72.142D - Displaced intertrochanteric fracture of left femur, subsequent encounter for closed fracture with routine healing (5) Acute blood loss anemia Priority: Primary Status: Acute Primary care physician: Kecia Elkins CNP - Patient Status Functional capacity at discharge: uses cane/walker Overall status at discharge: patient is progressing back to baseline - Hospital Course Hospital course: Ms. Ross is a 71 year old female Status post left femoral nail removal total hip replacement. Patient's postoperative course was complicated with exacerbation of her atrial fibrillation requiring admission transferred to the cardiac care unit. Patient seen this morning very well with sinus rhythm. Patient received antibiotics physical therapy discharge stable condition. - Time Spent with Patient Total time spent providing and/or coordinating discharge services:
[2016-10-30] MEDS ORDERED: CeFAZolin Pre 2,000 MG/100 ML 2,000 MG/100 ML BAG IVPB ONE (13:32)
[2016-10-30] MEDS ORDERED: Ringers Solution, Lactated 1,000 ML IVC SCH (13:45)
--- NOTE | 2016-10-30 13:57 | History & Physical Report ---
Date of Encounter: 10/30/16 Time of Encounter: 13:57 24 Hour HP Update - Instructions Instructions: If the History and Physical is less than 30 days old and was completed prior to A.M. admission and or procedure and has NOT been updated on calendar day of procedure please complete this update prior to performing procedure. - Update Patient reports changes in Medical Condition: No Changes in examination, assessment, or condition: No Changes in Medication: No Preop tests/diagnostics Reviewed: Yes Surgery Remains Indicated: Yes Consent for Planned Operative Procedure(s) Verified: Yes - Pre-Operative Checklist Preoperative Checklist Indicated: No Prophylactic Antibiotic Ordered: Yes Is VTE Prophylaxis Indicated?: Yes
[2016-10-30] MEDS ORDERED: Famotidine 20 MG/2 ML VIAL IVP ONE (14:57)
[2016-10-30] MEDS ORDERED: Gabapentin 300 MG CAPSULE PO ONE (14:58)
[2016-10-30] MEDS ORDERED: Ondansetron 4 MG/2 ML VIAL IVP PRN (15:02)
[2016-10-30] MEDS ORDERED: *HR* Labetalol 100 MG/20 ML MDV IVP PRN (15:02)
[2016-10-30] MEDS ORDERED: *HR* FentaNYL (PF) 100 MCG/2 ML VIAL ONE (15:05)
[2016-10-30] MEDS ORDERED: *HR* Propofol 200 MG/20 ML VIAL IVP ONE (15:06)
[2016-10-30] MEDS ORDERED: Lidocaine -MPF 2% 2 ML VIAL ONE (15:07)
--- NOTE | 2016-10-30 15:07 | Anesthesia Evaluation PreOp ---
Date of Encounter: 10/30/16 Time of Encounter: 15:00 - Past History Planned Operation: Left Total Hip Replacement Cardiac History: HTN, Arrhythmia (Hx AFib...on Cardizem) Pulmonary History: Denies Any Significant HX OFFICE ANALYST History: Denies Any Significant HX Other Medical History: GERD Anesthesia History: No Prior Anesthetic Complications : No Alcohol Use: none Drug use: none Medications and Allergies Alendronate Sodium [Fosamax] 70 mg PO ENCINAS 08/17/16 [History] Diltiazem CD (24hr) [Cardizem CD] 120 mg PO DAILY #30 cap.er.24h 08/31/16 [Rx] Ergocalciferol (VITAMIN D2) [Drisdol (50,000 Unit)] 50,000 unit PO [place]@0900 capsule 08/31/16 [Rx] Aspirin 325 mg PO DAILY #21 tablet 10/29/16 [Rx] OxyCODONE Immed Rel [Roxicodone 5 MG] 5 - 10 mg PO Q6HR PRN #40 tablet 10/29/16 [Rx] Aspirin [Lo-Dose Aspirin EC] 81 mg PO DAILY 10/30/16 [History] HYDROcodone/Acet 5/325 mg [[place] 5-325 mg] 1 tab PO Q6H PRN 10/30/16 [History] Ibuprofen [Motrin] 600 mg PO Q6HR PRN 10/30/16 [History] Ranitidine HCl [Zantac] 150 mg PO HS 10/30/16 [History] Allergies codeine Adverse Reaction (Verified 10/30/16 14:04) Vomiting - Meds/Allergy Pre-op Review Medications Reviewed: Yes Allergies Reviewed: Yes Beta Blockers on Current Med List: No Anesthesia Results - Labs Laboratory Tests 10/20/16 10/20/16 14:25 14:25 Hgb 13.6 Hct 41.8 Plt Count 326 Sodium 139 Potassium 3.9 BUN 11 Creatinine 0.72 - Imaging EKG: report reviewed (SR) Anesthesia Exam O2 Sat Height 1.63 m Height 1.63 m Weight 55.338 kg Weight 55.338 kg O2 Sat by Pulse Oximetry 97 Vital Signs Temp Pulse Resp BP Pulse Ox 98.5 F 94 18 169/80 97 10/30/16 13:43 10/30/16 13:43 10/30/16 13:43 10/30/16 13:43 10/30/16 13:43 Height: 5'4 Weight: 122 lbs NPO (# of Hours): MN Pain Scale: 0 - HEENT Pupil (Motor): Pupils equal, EOMI Mallampati: II Denture Type: Upper: Complete Oral Opening: Greater than 3 - OFFICE ANALYST LOC: Oriented OFFICE ANALYST Motor: Normal RUE, Normal LUE, Normal RLE, Normal LLE, Normal Face OFFICE ANALYST Sensory: Normal: RUE, LUE, RLE, LLE, Face - Cardiac Rhythm: Regular Murmur: None JVD: No Carotid Bruit: No - Pulmonary Breath Sounds: bilateral Clear Respiratory Effort: Symmetrical Anesthesia Assess/Plan ASA Score: 3 (HTN AFib currently sinus, Gerd) Modified Whitmer Scale for Level of Consciousness: Cooperative, oriented, and tranquil Anesthetic Plan: General Monitoring Plan: Standard Monitors Recovery Plan: PACU (Discussed GA, agrees to proceed)
[2016-10-30] MEDS ORDERED: *HR* Succinylcholine 200 MG/10 ML VIAL IVP ONE (16:11)
[2016-10-30] MEDS ORDERED: Lidocaine -MPF 4% 5 ML AMPUL ONE (16:12)
[2016-10-30] MEDS ORDERED: Ondansetron 4 MG/2 ML VIAL ONE (16:23)
[2016-10-30] MEDS ORDERED: Dexamethasone 4 MG/ML VIAL ONE (16:23)
[2016-10-30] MEDS ORDERED: *HR* HYDROmorphone 2 MG/ML SYRINGE ONE (16:42)
--- NOTE | 2016-10-30 17:11 | Orthopedic Operative Note ---
Date of procedure: 10/30/16 Pre-op diagnosis: Left hip protruding hardware Post-op diagnosis: same Procedure: Procedure: Left hip conversion of previous hip surgery to total hip replacement Estimated blood loss: 300 cc Hardware: Biomet DM Cup: G7 fin cup 52 Juan Carlos 20 x 1 50 stem, 70 high proximal body Head: 6head with Eulalia Procedural Notes: Patient with previous hip fracture with protrusion of helical blade into hip joint. Operative procedure: The patient was brought to the operating room and placed on the operating room table. After general anesthesia was administered the patient was placed in the lateral decubitus position with the operative leg up. All pressure points were padded appropriately and the head was stabilized in the neutral position. The operative extremity was prepped and draped in the sterile surgical fashion patient received IV antibiotic prior to skin incision. A standard posterior approach is made to the operative hip, the incision was made through the skin and subcutaneous tissue hemostasis was obtained with Bovie cautery. Using careful sharp dissection the fascia was identified and incised exposing the external rotators. The vastus medialis was split proximally the intramedullary nail was identified the proximal screw was loosened. Distally through a small lateral incision the distal screw was identified and removed the helical blade was removed through the same proximal incision and then the nail was removed without incident. The external rotators were released off the greater trochanter and tagged with #2 FiberWire suture. The capsule was T'd open and the hip was brought into internal rotation. Patient noted to have grade 4 arthritic changes femoral head. The femoral neck cut was made at the appropriate level. An anterior capsulotomy was performed for the anterior retractor. Soft tissues removed from the acetabulum. Patient noted to have grade 4 arthritic changes acetabulum. Acetabulum was first reamed medially, and then reamed in 15 degrees of anteversion and 45 degrees off the horizontal. It was reamed up to the appropriate size 52 The appropriate-sized 52 acetabular cup was impacted in place in 15 degrees of anteversion and 45 degrees off the horizontal. This had good fit and fixation. The hip was brought back in to internal rotation and prepared with the box printing machine operator followed by the canal finder because of the previous hip fracture. Decision was made to the revision stem. The femur was reamed to a 20 x 1 50. The stem was seated. Trial with a +70 body revealed the hip to be relocatable with the body and 20 degrees of anteversion. Trial body was removed we will 70 hi offset body was impacted in place in 20 degrees anteverted position and secured with the screw. Trial reduction found the hip to be stable with +6 head and Eulalia. The trials were removed and the real implants were impacted in place. The hip was reduced, patient had apparent equal leg lengths. The hip had excellent stability with forward flexion to 90 degrees adduction of 30 degrees and internal rotation of 60 degrees. The hip had no shuck. The hips after 2 minutes with a Betadine saline solution. It was irrigated out with 2 L of pulse irrigation. The external rotators were reattached to drill holes in the greater trochanter. Fascia was closed with a running #2 PDS suture. The deep tissue was irrigated and closed deep with #1 PDS suture superficially with 0 PDS suture and skin was closed with skin mariusz. Secondary small incision was closed deep with #1 PDS suture superficially with 0 PDS suture skin was closed with skin mariusz. The patient was placed in a sterile dressing and abduction pillow. The patient was extubated and transferred to the recovery room in stable condition. Anesthesia: JAMES Surgeon: Sid Palencia Immigration Guard: Marie Obregon Condition: stable Disposition: PACU
[2016-10-30] MEDS: *HR* HYDROmorphone (PF) 1 MG/ML SYRINGE IVP PRN ×2 (17:52→18:03)
[2016-10-30] MEDS ORDERED: *HR* Enoxaparin 30 MG/0.3 ML SYRINGE SQ SCH (18:00)
[2016-10-30 18:25] LABS: Hematocrit 34.8 % (35.3-44.9); Hemoglobin 11.2 g/dL (11.5-15.4)
--- NOTE | 2016-10-30 18:34 | Anesthesia Evaluation Post Op ---
Date of Encounter: 10/30/16 Time of Encounter: 18:33 - Vital Signs Vital Signs: Vital Signs/O2 Sat, Most Current Temp Pulse Resp BP Pulse Ox 98.3 F 85 14 105/55 97 10/30/16 18:29 10/30/16 18:29 10/30/16 18:29 10/30/16 18:29 10/30/16 18:29 - Lungs Lungs: Clear Ascult./Percussion - Airway Airway: Non-obstructed - Cardiovascular Regular Rate - Mental Status Mental Status: Asleep with brisk response to light stimulation - Pain Pain Scale: 4 Pain Scale used: Numeric (1 - 10) - Nausea Vomiting Nausea Vomiting: Responds to treatment with IV Meds - Hydration Hydration: NPO, Has not voided - Discharge PostOp Status: Transfer Patient to floor
[2016-10-30] MEDS ORDERED: Temazepam 15 MG CAPSULE PO PRN (18:44)
[2016-10-30] MEDS ORDERED: *HR* OxyCODONE Immed Rel 5 MG TABLET PO PRN (18:44)
[2016-10-30] MEDS ORDERED: Acetaminophen 325 MG TABLET PO PRN (18:44)
[2016-10-30] MEDS ORDERED: Naloxone 0.4 MG/ML INJ IVP PRN (18:44)
[2016-10-30] MEDS ORDERED: MOM Conc 10 ML UD.LIQ PO PRN (18:44)
--- NOTE | 2016-10-30 19:07 | Electrocardiograph Report ---
[address] [place] [address] Test Date: 2016-10-30 Pat Name: Maryam Ross Department: 106 Room: [facility] Gender: F Forklift Operator: GÓMEZ : 1945 Requested By: Matthias Suazo Order Number: [id number] Reading MD: Zacarias Sanchez MD Measurements Intervals Jackson Rate: 91 P: 50 MA: 140 QRS: 15 QRSD: 93 T: 38 QT: 342 QTc: 391 Interpretive Statements SINUS RHYTHM Electronically Signed On 10-30-2016 19:06:23 EDT by Zacarias Sanchez MD
[2016-10-30] MEDS: Ascorbic Acid 500 MG TABLET PO SCH (21:15)
[2016-10-30] MEDS: ceFAZolin 2,000 MG in D5% in Water 100 ML IVPB SCH (21:15)
[2016-10-31] MEDS: Ondansetron 4 MG/2 ML VIAL IVP PRN ×4 (01:43→21:27)
[2016-10-31] MEDS: ceFAZolin 2,000 MG in D5% in Water 100 ML IVPB SCH (05:59)
[2016-10-31] MEDS: *HR* Enoxaparin 30 MG/0.3 ML SYRINGE SQ SCH ×2 (06:00→18:03)
[2016-10-31 06:21] LABS: Hematocrit 34.4 % (35.3-44.9); Hemoglobin 10.7 g/dL (11.5-15.4)
--- NOTE | 2016-10-31 06:22 | Orthopedics Progress Note ---
Date of Encounter: 10/31/16 Time of Encounter: 06:21 - Assessment and Plan (1) Vitamin D deficiency Current Visit: No Status: Chronic (2) Atrial fibrillation with RVR Current Visit: No Status: Chronic (3) Intertrochanteric fracture of left hip Current Visit: No Status: Acute Qualifiers: Encounter type: subsequent encounter Fracture type: closed Fracture healing: with routine healing Qualified Code(s): S72.142D - Displaced intertrochanteric fracture of left femur, subsequent encounter for closed fracture with routine healing Subjective Interval history: Patient was seen this morning doing well without complaints. Afebrile vital signs stable. Operative extremity: Neurovascularly intact Dressing clean dry and intact Calves nontender Assessment and plan: Continue with postoperative care Hematocrit 34 Objective Vital signs: Vital Signs Temp Pulse Resp BP Pulse Ox 10/31/16 03:54 98.3 F 106 13 119/68 98 10/30/16 23:05 97.7 F 88 12 107/59 100 10/30/16 21:45 98.0 F 93 12 103/68 100 10/30/16 20:45 96.8 F L 94 12 110/73 99 10/30/16 20:02 96.6 F L 89 12 107/72 96 10/30/16 19:15 97.6 F 86 13 100/67 97 10/30/16 18:45 97.4 F L 84 14 96/66 96 10/30/16 18:29 98.3 F 85 14 105/55 97 10/30/16 18:19 77 16 96/50 96 10/30/16 18:09 98.3 F 77 16 103/50 97 10/30/16 17:59 80 16 102/54 98 10/30/16 17:49 82 16 95/73 96 10/30/16 17:39 98 F 79 16 77/58 94 10/30/16 13:43 98.5 F 94 18 169/80 97 Intake and Output 10/30/16 10/30/16 10/31/16 15:59 23:59 07:59 Intake Total 100 / 100 100 / 100 Output Total 300 / 300 Balance -200 / -200 100 / 100 Intake: IV Fluids 100 / 100 100 / 100 Ancef 2,000 MG In 100 / 100 Dextrose 5% 100 ML @ 200 mls/hr IVPB Q8H [facility] Rx#: [id number] Ancef Premix 2,000 MG/100 100 / 100 ML 2,000 mg In 100 ml @ 200 mls/hr IVPB PREOP ONE Rx#:[id number] Output: Estimated Blood Loss 300 / 300 Other: Weight 55.338 kg - Labs CBC & BMP: 10/30/16 18:03 Labs: Abnormal lab results Hgb 11.2 g/dL (11.5-15.4) L 10/30/16 18:03 Hct 34.8 % (35.3-44.9) L 10/30/16 18:03 - VTE Documentation of Mechanical Device: Venous foot pump, device Consult Discharge Plan - Plan Referrals: Kecia Elkins, COOK HELPER DESSERT [Primary Care Provider] -
[2016-10-31 06:33] LABS: BUN/Creatinine Ratio 18 (6-26); Blood Urea Nitrogen 17 mg/dL (7-20); Calcium 8.9 mg/dL (8.6-10.8); Carbon Dioxide 22 mEq/L (19-29); Chloride 107 mEq/L (98-109); Glucose 180 mg/dL (70-99); Osmolality,Calculated 296 (280-300); Potassium 4.3 mEq/L (3.5-4.5); Sodium 140 mEq/L (136-145); eGFR For African Americans > 60 (> 60); eGFR For Non-African Americans > 60 (> 60)
[2016-10-31] MEDS: *HR* HYDROmorphone (PF) 1 MG/ML SYRINGE IVP PRN ×3 (09:04→21:45)
[2016-10-31] MEDS: Ascorbic Acid 500 MG TABLET PO SCH ×2 (09:18→15:13)
[2016-10-31] MEDS: Multivit/Ca/Min/Fe/FA 1 TAB TABLET PO SCH (09:19)
[2016-10-31] MEDS: Ringers Solution, Lactated 1,000 ML IVC SCH (15:39)
[2016-11-01 04:54] LABS: Hematocrit 28.1 % (35.3-44.9)
[2016-11-01 05:03] LABS: Hemoglobin 8.7 g/dL (11.5-15.4)
[2016-11-01 05:20] LABS: BUN/Creatinine Ratio 33 (6-26); Blood Urea Nitrogen 26 mg/dL (7-20); Calcium 8.7 mg/dL (8.6-10.8); Carbon Dioxide 28 mEq/L (19-29); Chloride 104 mEq/L (98-109); Glucose 129 mg/dL (70-99); Osmolality,Calculated 294 (280-300); Potassium 4.4 mEq/L (3.5-4.5); Sodium 139 mEq/L (136-145); eGFR For African Americans > 60 (> 60); eGFR For Non-African Americans > 60 (> 60)
[2016-11-01] MEDS: *HR* Enoxaparin 30 MG/0.3 ML SYRINGE SQ SCH ×2 (05:48→16:55)
[2016-11-01] MEDS: Ringers Solution, Lactated 1,000 ML IVC SCH (05:49)
--- NOTE | 2016-11-01 06:48 | Orthopedics Progress Note ---
Date of Encounter: 11/01/16 Time of Encounter: 06:48 - Assessment and Plan (1) Vitamin D deficiency Current Visit: No Status: Chronic (2) Atrial fibrillation with RVR Current Visit: No Status: Chronic (3) Intertrochanteric fracture of left hip Current Visit: No Status: Acute Qualifiers: Encounter type: subsequent encounter Fracture type: closed Fracture healing: with routine healing Qualified Code(s): S72.142D - Displaced intertrochanteric fracture of left femur, subsequent encounter for closed fracture with routine healing Subjective Interval history: Patient was seen this morning doing well without complaints. Afebrile vital signs stable. Operative extremity: Neurovascularly intact Dressing clean dry and intact Calves nontender Assessment and plan: Continue with postoperative care Hemoglobin 8.7 patient's symptomatic received 2 units Objective Vital signs: Vital Signs Temp Pulse Resp BP Pulse Ox 11/01/16 00:00 98.2 F 117 16 130/77 97 10/31/16 20:00 98.0 F 118 16 127/77 100 10/31/16 15:10 98.1 F 115 18 120/67 96 10/31/16 11:21 99.1 F 115 16 115/77 94 Intake and Output 10/31/16 10/31/16 11/01/16 15:59 23:59 07:59 Intake Total 100 / 100 1100 / 1100 Output Total 100 / 100 225 / 225 Balance 0 / 0 875 / 875 Intake: IV Fluids 100 / 100 1000 / 1000 Lactated Ringers 1,000 ML 1000 / 1000 @ 75 mls/hr IVC .[id number] [facility] Rx#:[id number] Ancef 2,000 MG In 100 / 100 Dextrose 5% 100 ML @ 200 mls/hr IVPB Q8H [facility] Rx#: [id number] Oral 100 / 100 Output: Urine 225 / 225 Emesis 100 / 100 Other: # Voids 1 - Labs CBC & BMP: 11/01/16 04:38 11/01/16 04:38 Labs: Abnormal lab results Hgb 8.7 g/dL (11.5-15.4) L D 11/01/16 04:38 Hct 28.1 % (35.3-44.9) L 11/01/16 04:38 BUN 26 mg/dL (7-20) H 11/01/16 04:38 BUN/Creatinine Ratio 33 (6-26) H 11/01/16 04:38 Glucose 129 mg/dL (70-99) H 11/01/16 04:38 - VTE Documentation of Mechanical Device: Venous foot pump, device Consult Discharge Plan - Plan Referrals: Kecia Elkins, ART PROFESSOR [Primary Care Provider] -
[2016-11-01] MEDS ORDERED: Furosemide 20 MG/2 ML VIAL IVP PRN (06:51)
[2016-11-01] MEDS: *HR* HYDROmorphone (PF) 1 MG/ML SYRINGE IVP PRN (07:45)
[2016-11-01] MEDS: Aspirin Enteric Coated 81 MG Tablet PO SCH (07:45)
[2016-11-01] MEDS: Diltiazem CD (24hr) 120 MG CAPSULE PO SCH (07:45)
[2016-11-01] MEDS: Ondansetron 4 MG/2 ML VIAL IVP PRN (07:46)
[2016-11-01] MEDS: Famotidine 20 MG TABLET PO SCH (07:52)
[2016-11-01] MEDS: Ascorbic Acid 500 MG TABLET PO SCH ×2 (11:36→16:55)
[2016-11-01] MEDS: Multivit/Ca/Min/Fe/FA 1 TAB TABLET PO SCH (11:36)
[2016-11-01] MEDS: 0.9 % Sodium Chloride 250 ML IVC SCH (11:53)
[2016-11-01] MEDS: *HR* OxyCODONE Immed Rel 5 MG TABLET PO PRN ×2 (11:57→19:40)
--- NOTE | 2016-11-01 13:52 | Cardiology Consult Note ---
Date of Encounter: 11/01/16 Time of Encounter: 14:40 Assessment and Plan (1) Atrial fibrillation with RVR Current Visit: No Status: Chronic Atrial fibrillation with RVR. H/o afib seen in July 2016. HR 160-170's May be exacerbated by anemia and dehydration. On cardizem home dose 120 mg daily. B/p in the 80-90's systolic. WIll give IV fluid bolus 500cc. Discussed with Dr. Tarsha Parra, start amiodarone IV bolus and gtt. CHADS VASc=3 for HTN, age and gender. Ideally should be on anticoagulation. Developed anemia 2 days post-op. Start full strength anticoagulation when ok from orthopedic standpoint. Increased risk of CVA discussed with patient. Indication, use, benefit, and alternatives to coumadin or NOAC discussed with patient. Once anemia is stable she is agreeable to start. Eliquis RX sent through pharmacy through [facility] just to black check. TTE completed 07/2016- EF 70%, no significant valvular disease. Discussion w patient/family: The assessment and plan as outlined above was discussed with the patient and/or family members who expressed understanding and agreement. All questions were answered. Thank you for involving us in the care of your patient. Please call with any questions. History of Present Illness Consult date: 11/01/16 Requesting physician: Sid Palencia Consult reason: Afib with RVR Chief complaint: nausea History of present illness: Ms. Ross is a 71 year old female who presented for revision of her hip repair hardware. There was no complications during her procedure. Post-operatively she developed N/V for over 24 hours, dehydration, anemia, and atrial fibrillation with RVR. Cardiology consulted for evaluation. She is currently undergoing blood transfusion with 2 units PRBC. No active signs of bleeding. Nausea improved but she is still not eating and slowly increasing fluids. HR is currently in the 170's afib with RVR. She denies chest pain, palpitations or SOB. Past medical history significant transient afib in July 2016 prior left hip replacement, HTN, and rheumatic fever. Previous cardiac testing: TTE 08/18/16- EF 70%. LV appears small and under filled. No significant valvular disease. Past Med Surg Social Fam HX - Past Medical History Medical history: arthritis, atrial fibrillation, GERD, hypertension, osteoporosis, other Psychiatric history: no psych history - Past Surgical History Surgical History: , orthopedic, other - Social History Smoking Status: Never smoker Smokeless Tobacco Status: No Alcohol use: none Drug use: none - Family History Father Living Status: Hx Family Cardiac Disorders: Yes (cad) Hx Family Respiratory Disorders: No Hx Family Cancer: Yes (throat) Hx Family GI Disorders: No Hx Family Endocrine Disorder: No Hx Family Neuromuscular Disorders: No Hx Family Neurologic Disorders: No Hx Family HEENT Disorders: No Hx Family Autoimmune Disorders: No Mother Hx Family Endocrine Disorder: Yes (dm2) Brother Hx Family Cancer: Yes (throat) Sister Hx Family Cardiac Disorders: Yes Medications and Allergies Alendronate Sodium [Fosamax] 70 mg PO BRYSON 08/17/16 [History] Diltiazem CD (24hr) [Cardizem CD] 120 mg PO DAILY #30 cap.er.24h 08/31/16 [Rx] Ergocalciferol (VITAMIN D2) [Drisdol (50,000 Unit)] 50,000 unit PO Bryson@0900 capsule 08/31/16 [Rx] Aspirin 325 mg PO DAILY #21 tablet 10/29/16 [Rx] OxyCODONE Immed Rel [Roxicodone 5 MG] 5 - 10 mg PO Q6HR PRN #40 tablet 10/29/16 [Rx] Aspirin [Lo-Dose Aspirin EC] 81 mg PO DAILY 10/30/16 [History] HYDROcodone/Acet 5/325 mg [Seffner 5-325 mg] 1 tab PO Q6H PRN 10/30/16 [History] Ibuprofen [Motrin] 600 mg PO Q6HR PRN 10/30/16 [History] Ranitidine HCl [Zantac] 150 mg PO HS 10/30/16 [History] Allergies codeine Adverse Reaction (Verified 10/30/16 14:04) Vomiting All Systems Review: A 10-system review of systems was performed and is negative for pertinent findings except as documented above in the HPI. Physical Examination Vital Signs, Last 4 Hours Temp Pulse Resp BP Pulse Ox 11/01/16 13:19 98.7 F 178 18 90/48 100 11/01/16 12:00 98.1 F 176 16 101/47 98 11/01/16 11:30 98.6 F 189 16 113/63 95 11/01/16 10:52 98.3 F 110 14 114/73 92 General: Conversant, No Apparent Distress HEENT: Atraumatic, Normocephaly, Mucus Membranes Moist Neck: No JVD, Normal carotid pulses Cardiac: Other (Irregularly irregular. ) Lungs: Normal Breath Sounds, No Wheeze, Rales, Rhonchi Neuro: Alert and responsive, No focal deficits noted Abdomen: Soft, Non-Tender Skin: No rashes noted on visualized skin Musculoskeletal: No Chest Wall Tenderness Extremities: No Clubbing, No Cyanosis, No Edema, Normal Pulses, Other (Dressing on left hip D/I. ) Results 11/01/16 04:38 11/01/16 04:38 Lab Results 11/01/16 11/01/16 04:38 04:38 Hgb 8.7 L D Hct 28.1 L Sodium 139 Potassium 4.4 Chloride 104 Carbon Dioxide 28 BUN 26 H Creatinine 0.80 Glucose 129 H Calcium 8.7 - Imaging and Cardiology Echo: report reviewed Consult Discharge Plan - Plan Referrals: Sid Palencia MD [Partnered Physician] - 11/29/16 4:45 pm Marie Obregon, PAC [Physician Aircraft Assembler] - 11/09/16 11:30 am Kecia Elkins, SITE HEAD [Primary Care Provider] - 12/07/16 6:40 pm
[2016-11-01] MEDS ORDERED: Amiodarone Premix 360 MG/200 ML BAG IVC ONE (13:54)
[2016-11-01] MEDS ORDERED: Amiodarone Premix 150 MG/100 ML BAG IVPB ONE (13:54)
[2016-11-01] MEDS ORDERED: 0.9 % Sodium Chloride 500 ML IVC ONE (13:56)
--- NOTE | 2016-11-01 14:50 | Event Note ---
Date of Encounter: 11/01/16 Time of Encounter: 14:47 - Cardiology Event Note Eliquis black check was $178/month until deductible is met through pharmacy. Discussed with Dr. Tarsha Parra. Once anticoagulation is okay with ortho, would recommend 1 month free coupon for the Eliquis, then can be re-evaluated as outpt if deductible has been met and can continue Eliquis or if needs transitioned to Coumadin.
[2016-11-01] MEDS ORDERED: 0.9 % Sodium Chloride 250 ML ONE (15:01)
[2016-11-01] MEDS ORDERED: Amiodarone Premix 360 MG/200 ML BAG IVC SCH (20:00)
[2016-11-01] MEDS ORDERED: Famotidine 20 MG TABLET PO SCH (21:00)
[2016-11-02] MEDS: Ringers Solution, Lactated 1,000 ML IVC SCH ×2 (00:41→08:44)
[2016-11-02] MEDS: *HR* OxyCODONE Immed Rel 5 MG TABLET PO PRN ×3 (03:38→18:25)
[2016-11-02] MEDS: *HR* Enoxaparin 30 MG/0.3 ML SYRINGE SQ SCH (06:03)
[2016-11-02] MEDS: Ascorbic Acid 500 MG TABLET PO SCH ×2 (08:00→18:25)
[2016-11-02] MEDS: Diltiazem CD (24hr) 120 MG CAPSULE PO SCH (08:00)
[2016-11-02] MEDS: Aspirin Enteric Coated 81 MG Tablet PO SCH (08:00)
[2016-11-02] MEDS: Multivit/Ca/Min/Fe/FA 1 TAB TABLET PO SCH (08:00)
--- NOTE | 2016-11-02 08:10 | Orthopedics Progress Note ---
Date of Encounter: 11/02/16 Time of Encounter: 08:09 - Assessment and Plan (1) Hypertension Current Visit: No Status: Chronic Qualifiers: Hypertension type: essential hypertension Qualified Code(s): I10 - Essential (primary) hypertension (2) Vitamin D deficiency Current Visit: No Status: Chronic (3) Atrial fibrillation with RVR Current Visit: No Status: Acute (4) Intertrochanteric fracture of left hip Current Visit: No Status: Acute Qualifiers: Encounter type: subsequent encounter Fracture type: closed Fracture healing: with routine healing Qualified Code(s): S72.142D - Displaced intertrochanteric fracture of left femur, subsequent encounter for closed fracture with routine healing (5) Acute blood loss anemia Current Visit: Yes Status: Acute Subjective Interval history: Patient was seen this morning doing well without complaints rate normalized. Afebrile vital signs stable. Operative extremity: Neurovascularly intact Dressing clean dry and intact Calves nontender Assessment and plan: Continue with postoperative care Cleared for discharge today Objective Vital signs: Vital Signs Temp Pulse Resp BP Pulse Ox 11/02/16 07:48 98 F 70 110/52 11/02/16 06:52 98 F 89 16 109/49 95 11/02/16 05:00 91 105/49 11/02/16 04:00 92 105/46 11/02/16 03:22 98.2 F 93 18 96/48 96 11/02/16 02:00 100 96/39 11/02/16 01:00 94 98/46 11/02/16 00:00 92 98/42 11/01/16 23:06 99.0 F 98 14 103/45 97 11/01/16 22:00 103 97/69 11/01/16 21:00 97 98/51 11/01/16 20:00 106 98/43 11/01/16 19:39 99.4 F 102 13 101/46 100 11/01/16 18:07 98.3 F 107 16 97/48 98 11/01/16 18:00 107 97/48 11/01/16 17:30 122 96/47 11/01/16 17:00 133 102/61 11/01/16 16:30 147 94/51 11/01/16 16:00 140 89/52 11/01/16 15:45 149 91/47 11/01/16 15:30 98.3 F 130 16 99/32 99 11/01/16 15:25 172 11/01/16 15:00 98.3 F 163 16 89/53 98 11/01/16 13:19 98.7 F 178 18 90/48 100 11/01/16 12:01 98.6 F 174 18 96/67 11/01/16 12:00 98.1 F 176 16 101/47 98 11/01/16 11:30 98.6 F 189 16 113/63 95 11/01/16 10:52 98.3 F 110 14 114/73 92 Intake and Output 11/01/16 11/02/16 11/02/16 23:59 07:59 15:59 Intake Total 478 / 478 750 / 750 Output Total 500 / 500 500 / 500 Balance -22 / -22 250 / 250 Intake: IV Fluids 750 / 750 0.9 % Sodium Chloride 250 250 / 250 ML @ 25 mls/hr IVC .Q10H [facility] Rx#:[id number] Lactated Ringers 1,000 ML 500 / 500 @ 75 mls/hr IVC .[id number] [facility] Rx#:[id number] Oral 120 / 120 0 / 0 Blood Product 300 / 300 Rbcs Leuko Poor As-3 2nd 300 / 300 Unit [id number] Output: Urine 500 / 500 500 / 500 Other: Meal Dinner Percent of Meal Consumed 20% Weight 61.1 kg Patient Weight 11/02/16 23:59 Weight 61.1 kg - Labs CBC & BMP: 11/01/16 04:38 11/01/16 04:38 Labs: Abnormal lab results Hgb 8.7 g/dL (11.5-15.4) L D 11/01/16 04:38 Hct 28.1 % (35.3-44.9) L 11/01/16 04:38 BUN 26 mg/dL (7-20) H 11/01/16 04:38 BUN/Creatinine Ratio 33 (6-26) H 11/01/16 04:38 Glucose 129 mg/dL (70-99) H 11/01/16 04:38 - VTE Documentation of Mechanical Device: Venous foot pump, device Consult Discharge Plan - Plan Referrals: Sid Palencia MD [Partnered Physician] - 11/29/16 4:45 pm Marie Obregon, PAC [Physician Paraffiner] - 11/09/16 11:30 am Kecia Elkins, HORTICULTURAL FARM MANAGER [Primary Care Provider] - 12/07/16 6:40 pm
[2016-11-02] MEDS: 0.9 % Sodium Chloride 250 ML IVC SCH ×3 (08:44→18:27)
--- NOTE | 2016-11-02 10:43 | Cardiology Progress Note ---
Date of Encounter: 11/02/16 Time of Encounter: 10:30 Assessment and Plan (1) Atrial fibrillation with RVR Current Visit: Yes Status: Acute Atrial fibrillation with RVR. H/o afib seen in July 2016. HR 160-170's'; suspect exacerbated by anemia and dehydration. TTE completed 07/2016- EF 70%, no significant valvular disease Converted to SR yesterday evening, will d/c amiodarone gtt and start 200 mg amiodarone daily x1 month. Continue home cardizem dose. CHADS VASc=3 for HTN, age and gender. Ideally should be on anticoagulation; developed post-op anemia s/p 2 units PRBC. Has been on therapeutic lovenow. Discussed with Dr. Sanchez, will re-check H/H now, if stable, start Eliquis-- patient being discharged to inpatient rehab. Will provide 30 day free card. Start full strength anticoagulation when ok from orthopedic standpoint. Increased risk of CVA discussed with patient. Indication, use, benefit, and alternatives to coumadin or NOAC discussed with patient. Once anemia is stable she is agreeable to start. Discussion w patient/family: The assessment and plan as outlined above was discussed with the patient and/or family members who expressed understanding and agreement. All questions were answered. Thank you for involving us in the care of your patient. Please call with any questions. The patient will be discussed and reviewed with Dr. Sanchez; changes to be made accordingly. Subjective Principal diagnosis: Post-operative AF with RVR Interval history: Seen and examined. Up to bedside chair. Reports is feeling better today--nausea/vomiting has resolved. s/p 2 units PRBC yesterday. Objective Vital Signs, Last 4 Hours Temp Pulse Resp BP Pulse Ox 11/02/16 07:48 98 F 70 110/52 11/02/16 06:52 98 F 89 16 109/49 95 General: Conversant HEENT: Atraumatic, Normocephaly Cardiac: Reg Rate and Rhythm, Normal S1 and S2 Neuro: Alert and responsive Abdomen: Soft Musculoskeletal: No Chest Wall Tenderness Extremities: Normal Pulses, Other (mild LLE edema noted. ) Results 11/01/16 04:38 11/01/16 04:38 - Imaging and Cardiology Other Results: 12 hour tele: avg HR 92 SR. - EKG Interpretation EKG results cardiology: personally reviewed - VTE Documentation of Mechanical Device: Venous foot pump, device Consult Discharge Plan - Plan Referrals: Sid Palencia MD [Partnered Physician] - 11/29/16 4:45 pm Marie Obregon PAC [Physician Perl Programmer] - 11/09/16 11:30 am Kecia Elkins CNP [Primary Care Provider] - 12/07/16 6:40 pm
[2016-11-02 11:09] LABS: Hematocrit 32.7 % (35.3-44.9)
[2016-11-02 11:10] LABS: Hemoglobin 10.6 g/dL (11.5-15.4)
--- NOTE | 2016-11-02 11:53 | Electrocardiograph Report ---
[address] [place], [place] [address] Test Date: 2016-11-01 Pat Name: Maryam Ross Department: 114 Room: 2N01 Gender: F Clinical Dietician: : 1945 Requested By: Marie Obregon Order Number: [id number] Reading MD: Zacarias Sanchez MD Measurements Intervals [place] Rate: 189 P: AK: 0 QRS: 27 QRSD: 86 T: 35 QT: 226 QTc: 323 Interpretive Statements ATRIAL FIBRILLATION WITH RAPID VENTRICULAR RESPONSE Electronically Signed On 11-02-2016 11:52:13 EDT by Zacarias Sanchez MD
[2016-11-02] MEDS: *HR* Amiodarone 200 MG TABLET PO SCH (11:57)
[2016-11-02] MEDS: APIXABAN 5 MG TABLET PO SCH (20:52)
[2016-11-02] MEDS: Sennosides 8.6 MG TABLET PO PRN (20:52)
[2016-11-02] MEDS: Famotidine 20 MG TABLET PO SCH (20:52)
[2016-11-03] MEDS: *HR* OxyCODONE Immed Rel 5 MG TABLET PO PRN ×3 (03:34→19:27)
[2016-11-03] MEDS: Multivit/Ca/Min/Fe/FA 1 TAB TABLET PO SCH (09:08)
[2016-11-03] MEDS: Diltiazem CD (24hr) 120 MG CAPSULE PO SCH (09:08)
[2016-11-03] MEDS: Ascorbic Acid 500 MG TABLET PO SCH ×2 (09:09→16:59)
[2016-11-03] MEDS: APIXABAN 5 MG TABLET PO SCH (09:09)
[2016-11-03] MEDS: Aspirin Enteric Coated 81 MG Tablet PO SCH (09:09)
[2016-11-03] MEDS: *HR* Amiodarone 200 MG TABLET PO SCH (09:09)
[2016-11-03] MEDS: Sennosides 8.6 MG TABLET PO PRN (09:13)
[2016-11-03 11:13] LABS: Basophils % 0.2 %; Eosinophils # 0.1 K/mcL (0.0-0.6); Eosinophils % 0.6 %; Hematocrit 29.9 % (35.3-44.9); Immature Granulocytes % 1.1 % (0-4); Lymphocytes # 1.3 K/mcL (0.6-4.6); Lymphocytes % 8.8 %; Mean Corpuscular HGB Conc 33.4 g/dL (31.6-35.5); Mean Corpuscular Hemoglobin 27.5 pg (28.0-33.3); Mean Corpuscular Volume 82.1 fL (83.0-100.0); Mean Platelet Volume 10.1 fL (9.4-12.4); Monocytes # 0.8 K/mcL (0.0-1.3); Monocytes % 5.4 %; Neutrophils # 11.9 K/mcL (1.6-8.9); Platelet Count 207 K/mcL (140-400); Red Blood Count 3.64 M/mcL (3.82-4.97); Red Cell Distribution Width 14.2 % (11.5-14.5); Segmented Neutrophils % 83.9 %
--- NOTE | 2016-11-03 13:28 | Orthopedics Progress Note ---
Date of Encounter: 11/03/16 Time of Encounter: 12:00 - Assessment and Plan (1) Intertrochanteric fracture of left hip Current Visit: No Status: Acute Will change dressing today secondary to saturation and in preparation for transfer to [facility] facility. Continue Physical Therapy. Hip precautions x 6 weeks from surgery date. Continue ABD pillow at night. Ok to discharge from orthopedic standpoint. Qualifiers: Encounter type: subsequent encounter Fracture type: closed Fracture healing: with routine healing Qualified Code(s): S72.142D - Displaced intertrochanteric fracture of left femur, subsequent encounter for closed fracture with routine healing (2) Closed fracture of hip with malunion Current Visit: Yes Status: Acute Qualifiers: Laterality: left Qualified Code(s): S72.002P - Fracture of unspecified part of neck of left femur, subsequent encounter for closed fracture with malunion (3) Atrial fibrillation with RVR Current Visit: Yes Status: Acute Continue management per Cardiology. (4) Hypertension Current Visit: No Status: Chronic Qualifiers: Hypertension type: essential hypertension Qualified Code(s): I10 - Essential (primary) hypertension (5) Physical deconditioning Current Visit: No Status: Chronic Continue physical therapy. Subjective Principal diagnosis: Post-operative AF with RVR Interval history: Patient doing well. Sitting up eating when this provider entered the room. Patient states pain has been well controlled. Denies concerns regarding her incision site. Afebrile vital signs stable. Left lower extremity neurovascularly intact, Dressing present and intact - appx 50% saturated. Calves nontender. Patient states she has been able to ambulate with therapy. Cardiology managing AFib. Awaiting discharge to [facility] at present. Objective Vital signs: Vital Signs Temp Pulse Resp BP Pulse Ox 11/03/16 12:28 109 94 11/03/16 11:26 98.7 F 98 18 109/59 98 11/03/16 09:15 104 97 11/03/16 07:42 101 98 11/03/16 07:17 98.7 F 98 14 111/58 97 11/03/16 03:17 98.6 F 102 16 114/61 96 11/02/16 23:13 98.1 F 101 12 111/48 97 11/02/16 19:04 98.1 F 98 15 110/55 98 11/02/16 15:34 97.9 F 90 16 103/46 96 Intake and Output 11/02/16 11/03/16 11/03/16 23:59 07:59 15:59 Intake Total 540 / 540 0 / 0 120 / 120 Output Total 850 / 850 800 / 800 150 / 150 Balance -310 / -310 -800 / -800 -30 / -30 Intake: Oral 540 / 540 0 / 0 120 / 120 Output: Urine 850 / 850 800 / 800 150 / 150 Other: Meal Dinner Breakfast Percent of Meal Consumed 60% 10% Weight 62.4 kg Patient Weight 11/03/16 23:59 Weight 62.4 kg Incision: healing (Dressing appx 50% saturated; judith-incision area is warm and dry to touch, no erythema or induration noted) - Labs CBC & BMP: 11/03/16 11:07 11/01/16 04:38 Labs: Abnormal lab results WBC 14.2 K/mcL (4.3-11.1) H 11/03/16 11:07 RBC 3.64 M/mcL (3.82-4.97) L 11/03/16 11:07 Hgb 10.0 g/dL (11.5-15.4) L 11/03/16 11:07 Hct 29.9 % (35.3-44.9) L 11/03/16 11:07 MCV 82.1 fL (83.0-100.0) L 11/03/16 11:07 MCH 27.5 pg (28.0-33.3) L 11/03/16 11:07 Neutrophils # 11.9 K/mcL (1.6-8.9) H 11/03/16 11:07 BUN 26 mg/dL (7-20) H 11/01/16 04:38 BUN/Creatinine Ratio 33 (6-26) H 11/01/16 04:38 Glucose 129 mg/dL (70-99) H 11/01/16 04:38 - VTE Documentation of Mechanical Device: Venous foot pump, device Consult Discharge Plan - Plan Instructions: Amiodarone (By mouth), Atrial Fibrillation (DC), Total Hip Replacement (DC), Precautions after Total Joint Replacement Surgery (DC), Fall Prevention (DC) Referrals: Sid Palencia MD [Partnered Physician] - 11/29/16 4:45 pm Marie Obregon PAC [Physician Registrar Assistant] - 11/09/16 11:30 am Kecia Elkins, PRODUCTION PLANNING MANAGER [Primary Care Provider] - 12/07/16 6:40 pm Ericka Garcia DO [Partnered Physician] - 11/17/16 11:40 am
--- NOTE | 2016-11-03 14:23 | Cardiology Progress Note ---
Date of Encounter: 11/03/16 Time of Encounter: 14:10 Assessment and Plan (1) Atrial fibrillation with RVR Current Visit: Yes Status: Acute Atrial fibrillation with RVR. H/o afib seen in July 2016. HR 160-170's'; suspect exacerbated by anemia and dehydration. TTE completed 07/2016- EF 70%, no significant valvular disease Converted to SR 11/01/16. HR 90's SR upon exam at beside, frequent PAC's noted. Baseline ECG shows SR HR 90. There has been concern with HR climibing to low 100's, will increase home cardizem to 180 mg daily & give additional 60 mg now. Continue amiodarone 200 mg daily x1 month. CHADS VASc=3 for HTN, age and gender; full anticoagulation recommended. Developed post-op anemia s/p 2 units PRBC. H/H has remained stable and was started on Eliquis 5 mg BID. 30 day free card provided. No further recommendations from cardiology standpoint. Will sign-off. Appointment will be coordinate with office. Discussion w patient/family: The assessment and plan as outlined above was discussed with the patient and/or family members who expressed understanding and agreement. All questions were answered. Thank you for involving us in the care of your patient. Please call with any questions. The patient will be discussed and reviewed with Dr. Sanchez; changes to be made accordingly. Subjective Principal diagnosis: Post-operative AF with RVR Interval history: Seen and examined. Up to bedside chair. She has no complaints this afternoon upon exam, denies palpitations, dyspnea, or chest pain/discomfort. HR 90's upon exam, SR. s/p 2 units PRBC on 11/01. Objective Vital Signs, Last 4 Hours Temp Pulse Resp BP Pulse Ox 11/03/16 12:28 109 94 11/03/16 11:26 98.7 F 98 18 109/59 98 Results 11/03/16 11:07 11/01/16 04:38 Lab Results 11/03/16 11:07 WBC 14.2 H Hgb 10.0 L Hct 29.9 L Plt Count 207 - VTE Documentation of Mechanical Device: Venous foot pump, device Consult Discharge Plan - Plan Instructions: Amiodarone (By mouth), Atrial Fibrillation (DC), Total Hip Replacement (DC), Precautions after Total Joint Replacement Surgery (DC), Fall Prevention (DC) Referrals: Sid Palencia MD [Partnered Physician] - 11/29/16 4:45 pm Marie Obregon, PAC [Physician Cad Engineer] - 11/09/16 11:30 am Kecia Elkins, DUMP TRUCK DRIVER [address] HIG[address] [Primary Care Provider] - 12/07/16 6:40 pm Ericka Garcia DO [Partnered Physician] - 11/17/16 11:40 am
[2016-11-03] MEDS ORDERED: dilTIAZem HCl 60 MG TABLET PO ONE (14:30)
[2016-11-03 16:01] VITALS: BP 119/55
--- NOTE | 2016-11-03 16:45 | Discharge Summary ---
Date of Encounter: 11/03/16 Time of Encounter: 16:44 - Discharge Diagnosis (1) Intertrochanteric fracture of left hip Priority: Primary (S/P Total Hip Replacement) Status: Acute Qualifiers: Encounter type: subsequent encounter Fracture type: closed Fracture healing: with routine healing Qualified Code(s): S72.142D - Displaced intertrochanteric fracture of left femur, subsequent encounter for closed fracture with routine healing (2) Closed fracture of hip with malunion Priority: Primary Status: Acute Qualifiers: Laterality: left Qualified Code(s): S72.002P - Fracture of unspecified part of neck of left femur, subsequent encounter for closed fracture with malunion (3) Atrial fibrillation with RVR Priority: Secondary Status: Acute Comments: Now taking Amiodarone, Eliquis, and Diltiazem per cardiology. (4) Hypertension Priority: Secondary Status: Chronic Qualifiers: Hypertension type: essential hypertension Qualified Code(s): I10 - Essential (primary) hypertension (5) Physical deconditioning Priority: Secondary Status: Chronic - Discharge Medications Prescriptions: OxyCODONE Immed Rel [Roxicodone 5 MG] 5 mg PO Q4HR PRN 7 Days PRN Reason: Mild pain 1-3 OxyCODONE Immed Rel [Roxicodone 5 MG] 5 - 10 mg PO Q6HR PRN #56 tablet PRN Reason: Pain Home Medications: Alendronate Sodium [Fosamax] 70 mg PO BRYSON 08/17/16 [History] Diltiazem CD (24hr) [Cardizem CD] 120 mg PO DAILY #30 cap.er.24h 08/31/16 [Rx] Ergocalciferol (VITAMIN D2) [Drisdol (50,000 Unit)] 50,000 unit PO Bryson@0900 capsule 08/31/16 [Rx] Aspirin 325 mg PO DAILY #21 tablet 10/29/16 [Rx] OxyCODONE Immed Rel [Roxicodone 5 MG] 5 - 10 mg PO Q6HR PRN #40 tablet 10/29/16 [Rx] Acetaminophen [Tylenol] 650 mg PO Q4HR PRN #0 tablet 11/03/16 [Rx] Amiodarone [Cordarone] 200 mg PO DAILY tablet 11/03/16 [Rx] Apixaban [Eliquis] 5 mg PO BID tablet 11/03/16 [Rx] Ascorbic Acid [Vitamin C] 500 mg PO BIDWM tablet 11/03/16 [Rx] Aspirin Enteric Coated [Aspirin EC] 81 mg PO DAILY tablet. 11/03/16 [Rx] Docusate [Colace] 100 mg PO BID capsule 11/03/16 [Rx] Famotidine [Pepcid] 20 mg PO HS tablet 11/03/16 [Rx] Ferrous Sulfate 325 mg PO BIDWM tablet 11/03/16 [Rx] MOM Conc [MILK OF MAGNESIA conc] 5 ml PO HS PRN #0 ud.liq 11/03/16 [Rx] Multivit/Ca/Min/Fe/FA [Thera M Plus] 1 tab PO DAILY tablet 11/03/16 [Rx] OxyCODONE Immed Rel [Roxicodone 5 MG] 5 - 10 mg PO Q6HR PRN #56 tablet 11/03/16 [Rx] OxyCODONE Immed Rel [Roxicodone 5 MG] 5 mg PO Q4HR PRN 7 Days 11/03/16 [Rx] Allergies/Adverse Reactions: Allergies codeine Adverse Reaction (Verified 10/30/16 14:04) Vomiting Labs on day of discharge: Labs from last 24 hours 11/03/16 11:07 WBC 14.2 H RBC 3.64 L Hgb 10.0 L Hct 29.9 L MCV 82.1 L MCH 27.5 L MCHC 33.4 RDW 14.2 Plt Count 207 MPV 10.1 Immature Gran % 1.1 Seg Neutrophils % 83.9 Lymphocytes % 8.8 Monocytes % 5.4 Eosinophils % 0.6 Basophils % 0.2 Neutrophils # 11.9 H Lymphocytes # 1.3 Monocytes # 0.8 Eosinophils # 0.1 Basophils # 0.0 - Impressions ITS Impressions Hip X-Ray 10/30/16 00:01 IMPRESSION: Interval revision of left hip with new hip arthroplasty now present. D/ / Wes Daigle MD / Wes Daigle MD Interpreting Provider: Wes Daigle MD Date of admission: 10/30/16 18:46 Primary care physician: Kecia Elkins CNP Consults: 10/30/16 18:44 Consult to Nurse Navigator [CONS] Routine Comment: ortho navigator Consult to Occupational Therapy [CONS] Routine Comment: Evaluate, develop and implement POC Consult to Physical Therapy [CONS] Routine Comment: Evaluate, develop and implement POC Consult to [place] [CONS] Routine Reason for SW Consult: post op joint replacement RT Post Op Consult [CONS] Routine 11/01/16 11:38 Consult to Cardiology [CONS] Routine Comment: Consulting Provider: Cardiology Sumi Reason for Consult: A-fib, RVR Call Completed: Yes Discharging clinician: Sid Palencia Anticipated date of discharge: 11/03/16 - Patient Status Disposition: Transfer Inpatient Rehab Fac Condition: Fair Functional capacity at discharge: uses cane/walker Overall status at discharge: patient is progressing back to baseline - Discharge Instructions Instructions: Amiodarone (By mouth), Atrial Fibrillation (DC), Total Hip Replacement (DC), Chronic Hypertension (DC), Precautions after Total Joint Replacement Surgery (DC), Fall Prevention (DC) Follow Up With: Sid Palencia MD [Partnered Physician] - 11/29/16 4:45 pm Marie Obregon PAC [Physician Manager Medical Writing] - 11/09/16 11:30 am Kecia Elkins CNP [Primary Care Provider] - 12/07/16 6:40 pm Ericka Garcia DO [Partnered Physician] - 11/17/16 11:40 am - Diet and Activity Activity: as per physical therapy Diet: regular diet - Hospital Course Hospital course: Ms. Ross is a 71 year old female Status post left femoral nail removal and total hip replacement 10/30/16. Patient's postoperative course was complicated with exacerbation of her atrial fibrillation requiring admission and transfer to the cardiac care unit. Patient seen today and doing very well with sinus rhythm. Patient now on Amiodarone, Diltiazem and Eliquis for her AFib per Cardiology team. Patient received antibiotics, physical therapy, now okay to discharge in stable condition. - Time Spent with Patient Total time spent providing and/or coordinating discharge services: - VTE Documentation of Mechanical Device: Venous foot pump, device
--- NOTE | 2016-11-03 20:59 | Electrocardiograph Report ---
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
[2016-11-04] MEDS ORDERED: Diltiazem CD (24hr) 180 MG CAPSULE PO SCH (09:00)
[2016-11-05] MEDS ORDERED: ALENDRONATE 70MG PO SCH (09:00)
== END 2016-11-03 19:35 | DRG 470 ==
LOC: SAMDAY 12:56 → 3NENU 18:46 → 2NNU 11-01 14:47
PROVIDERS: ADMIT Orthopaedic Surgery; ATTEND Orthopaedic Surgery